=== PATIENT | male | born 1960 | race Caucasian/White ===

== ENCOUNTER 2022-11-23 13:53 | Outpatient (REF) | payer OTHER, SELFPAY | END 2022-11-23 13:54 | disposition home or self-care (01) | LOC: HO.BBR 13:53 | PROVIDERS: PCP Internal Medicine; Visit Provider Hospitalist | DX: E83.111 Hemochromatosis due to repeated red blood cell transfusions (principal) | CPT/HCPCS: 85018; 99195 ==

== ENCOUNTER 2022-12-26 13:53 | Outpatient (REF) | payer OTHER, SELFPAY | END 2022-12-26 13:54 | disposition home or self-care (01) | LOC: HO.BBR 13:53 | PROVIDERS: Visit Provider Hospitalist | DX: E83.111 Hemochromatosis due to repeated red blood cell transfusions (principal) | CPT/HCPCS: 85018; 99195 ==

== ENCOUNTER 2023-01-27 11:58 | Outpatient (REF) | payer OTHER, SELFPAY | END 2023-01-27 11:59 | disposition home or self-care (01) | LOC: HO.BBR 11:58 | PROVIDERS: Visit Provider Hospitalist | DX: E83.111 Hemochromatosis due to repeated red blood cell transfusions (principal) | CPT/HCPCS: 85018; 99195 ==

== ENCOUNTER 2023-02-24 08:48 | Outpatient (REF) | payer OTHER, SELFPAY | END 2023-02-24 08:49 | disposition home or self-care (01) | LOC: HO.BBR 08:48 | PROVIDERS: PCP Internal Medicine; Visit Provider Hospitalist | DX: E83.111 Hemochromatosis due to repeated red blood cell transfusions (principal) | CPT/HCPCS: 85018; 99195 ==

== ENCOUNTER 2023-03-24 10:02 | Outpatient (REF) | payer OTHER, SELFPAY | END 2023-03-24 10:03 | disposition home or self-care (01) | LOC: HO.BBR 10:02 | PROVIDERS: PCP Internal Medicine; Visit Provider Hospitalist | DX: E83.111 Hemochromatosis due to repeated red blood cell transfusions (principal) | CPT/HCPCS: 85018; 99195 ==

== ENCOUNTER 2023-04-19 09:55 | Outpatient (REF) | payer OTHER, SELFPAY | END 2023-04-19 09:56 | disposition home or self-care (01) | LOC: HO.BBR 09:55 | PROVIDERS: PCP Internal Medicine; Visit Provider Hospitalist | DX: E83.111 Hemochromatosis due to repeated red blood cell transfusions (principal) | CPT/HCPCS: 85014; 85018; 99195 ==

== ENCOUNTER 2023-05-17 09:48 | Outpatient (REF) | payer OTHER, SELFPAY | END 2023-05-17 09:49 | disposition home or self-care (01) | LOC: HO.BBR 09:48 | PROVIDERS: PCP Internal Medicine; Visit Provider Hospitalist | DX: E83.111 Hemochromatosis due to repeated red blood cell transfusions (principal) | CPT/HCPCS: 85018; 99195 ==

== ENCOUNTER 2023-05-21 19:57 | Emergency (ER) | payer OTHER, SELFPAY ==
--- NOTE | ~2023-05-21 | CT_ITS ---
EXAMINATION: CT ANGIOGRAM OF THE CHEST WITH AND WITHOUT CONTRAST (CT PULMONARY ANGIOGRAM FOR PE) CLINICAL INFORMATION: Reason for Exam sob , cp hx of pe , lung ca COMPARISON: CT abdomen pelvis 11/09/2016 TECHNIQUE: Prior to contrast administration, noncontrast localization images were obtained. Subsequently, multidetector volumetric imaging was performed from the thoracic inlet to below the diaphragms following the administration of 65 mL Omnipaque 350 intravenous contrast. No contrast reaction reported Sagittal, coronal, and MIP oblique sagittal reformatted images were obtained on the CT workstation, uploaded to PACS, and reviewed. This CT examination was performed using dose optimization techniques as appropriate, variously including the following: *Automated exposure control *Adjustment of mA and/or kV according to patient size (this includes techniques or standardized protocols for targeted exams where dose is matched to indication/reason for exam; i.e. extremities or head) *Use of iterative reconstruction technique Total exam dose-length product 446 mGy-cm FINDINGS: QUALITY OF STUDY/CONTRAST BOLUS: Satisfactory. PULMONARY ARTERIES: No central or large segmental pulmonary emboli. THORACIC AORTA: No aneurysm. LUNG: Severe emphysematous changes are present in the lungs. There is a single large bolus taking up a large portion of the right thoracic cavity measuring 23.3 x 10.9 x 8.6 cm. A few scattered micronodules are seen (for example left upper lobe 3 mm, 7:161). No air-fluid levels are seen on the sagittal images to correspond with the abnormality seen on the chest radiograph. PLEURA: No pleural effusion or pneumothorax. MEDIASTINUM: Normal heart size. No pericardial effusion. No hilar or mediastinal lymphadenopathy. No evidence of septal bowing or right heart strain. CORONARY ARTERY CALCIFICATION: None visualized on this study. CHEST WALL/AXILLA: No axillary or internal mammary lymphadenopathy. OSSEOUS STRUCTURES: No acute or suspicious osseous abnormality. Degenerative changes are present throughout the spine. UPPER ABDOMEN: Unremarkable. No reflux of contrast into the hepatic veins to suggest elevated right heart pressures. CT/CT angio chest PE protocol IMPRESSION: 1. No evidence of pulmonary emboli. 2. Severe emphysema. 3. Single large bolus taking up much of the right thoracic cavity. 4. A few scattered micronodules. VTE: negative.
--- NOTE | ~2023-05-21 | XR_ITS ---
EXAMINATION: XR CHEST CLINICAL INFORMATION: Chest pain, history of lung carcinoma COMPARISON: None available. TECHNIQUE: 2 views of the chest were obtained. FINDINGS: No previous. Advanced emphysema particularly on the right with large bullous formation. Suspect air-fluid level best seen on the lateral projection.. No definite mass or infiltrate. Heart size normal. Scoliosis convex left thoracolumbar spine. XR/XR chest 2V IMPRESSION: Severe emphysema. Air-fluid level noted on the lateral projection which may suggest superinfection of a large bulla.
--- NOTE | 2023-05-21 20:01 | ECG_ITS ---
Test Reason : CP Blood Pressure : / mmHG Vent. Rate : 099 BPM Atrial Rate : 099 BPM P-R Int : 150 ms QRS Dur : 066 ms QT Int : 340 ms P-R-T Axes : 080 -35 078 degrees QTc Int : 436 ms Sinus rhythm with marked sinus arrhythmia Left axis deviation Pulmonary disease pattern Inferior infarct , age undetermined Abnormal ECG No previous ECGs available Referred By: Generic ED Physician Electronically Signed By:GEORGE DAIGLE MD
[2023-05-21 20:08] VITALS: BP 156/78; PULSE 107; RESP 20; TEMP 36.8; O2SAT 96; BMI 27.3
--- NOTE | 2023-05-21 20:58 | MHC.EDTECH ---
Patient was brought into triage,EKG taken and sighed by provider. Labs were obtained and sent to lab
[2023-05-21 21:04] LABS: MANUAL DIFF FLAG NO
[2023-05-21 21:06] LABS: Basophils Percent Auto 0.4 % (0-2); Eosinophils Absolute Auto 0.1 X10*3/uL (0.0-0.4); Eosinophils Percent Auto 0.5 % (0-4); Hematocrit 45.2 % (42.0-52.0); Hemoglobin 15.4 g/dl (14.0-18.0); Imm Gran Abs Auto 0.11 X10*3/uL (0.00-0.03); Imm Gran Pct Auto 1.2 % (0.0-0.4); Lymphocytes Absolute Auto 1.2 X10*3/uL (1.2-4.9); Lymphocytes Percent Auto 13.2 % (20-40); Mean Corpuscular HGB Conc 34.1 g/dl (31.0-36.0); Mean Corpuscular Hemoglobin 30.7 pg (27.0-33.0); Mean Corpuscular Volume 90.2 fL (80.0-98.0); Mean Platelet Volume 10.1 fL (9.4-12.4); Neutrophils Absolute Auto 6.8 x10*3/uL (2.0-8.3); Neutrophils Percent Auto 73.7 % (45-73); Platelet Count 226 X10*3/uL (160-400); Red Blood Count 5.01 X10*6/uL (4.60-5.80); Red Cell Distribution Width 13.5 % (11.0-16.0); White Blood Count 9.3 X10*3/uL (4.8-10.8)
[2023-05-21 21:22] LABS: Alanine Aminotransferase 23 U/L (0-40); Albumin Level 4.3 g/dL (3.5-5.0); Alkaline Phosphatase 146 U/L (39-117); Anion Gap 16 (12-20); Aspartate Amino Transferase 25 U/L (5-37); Bilirubin Total 0.9 mg/dL (0.0-1.0); Blood Urea Nitrogen 14 mg/dL (9-16); Calcium 10.5 mg/dL (8.4-10.2); Carbon Dioxide 26 mmol/L (22-29); Chloride 104 mmol/L (96-108); Creatinine Clr Calc Pharmacy 85.3; Estimated Glomerular Filt Rate > 60; Glucose Random 126 mg/dL (60-115); Sodium 142 mmol/L (135-145); Total Protein 7.4 g/dL (6.5-8.0)
[2023-05-21 21:29] LABS: Troponin-I High Sensitivity < 2.7 ng/L (<3.5-35.0)
--- NOTE | 2023-05-21 22:41 | ED.CHESTPAIN ---
HPI - Chest Pain General Chief Complaint: Chest Pain Stated Complaint: chest pain Time Seen by Provider: 05/21/23 22:41 Source: patient Mode of arrival: ambulatory Limitations: no limitations History of Present Illness HPI narrative: Patient is 62 years old with history of COPD ex-smoker, lung CA status post lobectomy chemo and radiation treatment 2019 in remission history of PE 08/18 DVT on Eliquis no known cardiac history apparently been feeling more short of breath lately last night at 02:00 while sitting in the constitution party felt heaviness in the mid chest radiating to his neck with nausea and increased shortness of breath also felt tingling in the right arm it continued all day today and did not go without the patient keep the ER no abdominal pain patient never had similar pain in the past patient had labs done prior to my evaluation high sensitive troponin less than 2.7. Patient denies any palpitation no syncope pain was pressure-like feeling in mid chest area Related Data Previous Rx's Medication Instructions Recorded morphine 15 mg immediate release 15 mg PO Q8H PRN pain #15 tabs 05/22/23 tablet Allergies Allergy/AdvReac Type Severity Reaction Status Date / Time No Known Allergies Allergy Unverified 02/13/20 16:57 [No Known Allergies*] adhesives Allergy Unknown severe Uncoded 11/24/16 00:00 rash, skin irritation percocet Allergy Unknown vomiting Uncoded 11/24/16 00:00 Review of Systems Review of Systems: Yes all other systems are reviewed and are negative [facility] Social History Social History Alcohol intake: current Alcohol intake frequency: holidays/special occasions only Alcohol type: hard liquor Smoked in Last 30 Days: No Substance Use Type: Marijuana Substance Use Frequency: Occasionally Last Used Substance: Days (ago) Any prior treatment program specific to substance use: No Advance Directives: No Advance Directives Information Provided: Yes Physical Exam Vital Signs: Vital Signs: Last Vital Signs Temp 98.6 F 05/21/23 23:29 Pulse 100 05/21/23 23:29 Resp 18 05/21/23 23:29 BP 115/82 05/21/23 23:29 Pulse Ox 96 05/21/23 23:29 O2 Del Method Nasal Cannula 05/21/23 23:29 O2 Flow Rate 1 05/21/23 23:29 BMI result Body Mass Index 27.3 Appearance: Alert. Oriented X3. No acute distress. Eyes: PERRLA ENT: Pharynx normal. Oral Mucosa moist Neck: Normal inspection. Neck supple. CVS: Normal heart rate and rhythm. Pulses normal. Respiratory: No respiratory distress. Equal air entry bilateral, prolonged expiration no wheezing Abdomen: Soft and nontender. Bowel sounds are present, no mass palpable, no CVA tenderness Skin: Skin warm and dry. Normal skin color. Normal skin turgor. Extremities: No lower extremity edema. No calf tenderness Neuro: Oriented X 3. No motor deficit. No sensory deficit.No cerebellar signs , cranial nerves II-XII intact Medications Administered Discontinued Medications Generic Name Dose Route Start Last Admin Trade Name Freq PRN Reason Stop Dose Admin Iohexol 65 ml 05/22/23 00:17 05/22/23 00:18 Iohexol 350 Mg/Ml 100 Ml Infus..Btl IV 05/22/23 00:18 65 ml ONCE ONE Administration Morphine Sulfate 15 mg 05/22/23 01:23 05/22/23 01:38 Morphine Sulfate Immed Release 15 Mg Tablet PO 05/22/23 01:24 15 mg ONCE ONE Administration Medical Decision Making Medical Decision Making [facility] Narrative: Patient with mid and right-sided chest pain with history of severe emphysema no ischemic change in the EKG CTA chest showed no PE but has large Bullae likely the cause for shortness of breath and pain will discharge patient home on pain medication advised to follow with lung specialist Differential Diagnosis Differential Diagnoses: The differential diagnosis associated with the presentation includes ACS/PE/pneumothorax/pneumonia/pleurisy Admission/Observation Consideration of admission/observation: Escalation of care including admission/observation considered Lab Data [facility] Lab Attestation statement: I reviewed the patient's lab results. 05/21/23 20:57 05/21/23 20:57 Labs: Lab Results 05/21/23 05/21/23 05/22/23 Range/Units 20:57 23:14 00:19 WBC 9.3 (4.8-10.8) X10*3/uL RBC 5.01 (4.60-5.80) X10*6/uL Hgb 15.4 (14.0-18.0) g/dl Hct 45.2 (42.0-52.0) % MCV 90.2 (80.0-98.0) fL MCH 30.7 (27.0-33.0) pg MCHC 34.1 (31.0-36.0) g/dl RDW 13.5 (11.0-16.0) % Plt Count 226 (160-400) X10*3/uL MPV 10.1 (9.4-12.4) fL Immature Gran % (Auto) 1.2 H (0.0-0.4) % Neut % (Auto) 73.7 H (45-73) % Lymph % (Auto) 13.2 L (20-40) % [place] % (Auto) 11.0 (2-11) % Eos % (Auto) 0.5 (0-4) % Baso % (Auto) 0.4 (0-2) % Lymph # (Auto) 1.2 (1.2-4.9) X10*3/uL [place] # (Auto) 1.0 (0.1-1.2) X10*3/uL Eos # (Auto) 0.1 (0.0-0.4) X10*3/uL Baso # (Auto) 0.0 (0.0-0.2) X10*3/uL Abs Immat Gran (auto) 0.11 H (0.00-0.03) X10*3/uL Absolute Neuts (auto) 6.8 (2.0-8.3) x10*3/uL Absolute Nucleated RBC 0.000 (0.0-0.012) X10*3/uL Nucleated RBC % (auto) 0.0 (0.0-0.2) /100WBC PT 12.7 (11.1-13.3) SEC INR 1.0 (0.9-1.1) APTT 31.5 (26.0-36.4) SEC Sodium 142 (135-145) mmol/L Potassium 4.0 (3.3-5.1) mmol/L Chloride 104 (96-108) mmol/L Carbon Dioxide 26 (22-29) mmol/L Anion Gap 16 (12-20) BUN 14 (9-16) mg/dL Creatinine 1.04 (0.5-1.4) mg/dL Estim Creat Clear Calc 85.3 Estimated GFR > 60 Random Glucose 126 H (60-115) mg/dL Calcium 10.5 H (8.4-10.2) mg/dL Total Bilirubin 0.9 (0.0-1.0) mg/dL AST 25 (5-37) U/L ALT 23 (0-40) U/L Alkaline Phosphatase 146 H (39-117) U/L Troponin I High Sens < 2.7 < 2.7 (<3.5-35.0) ng/L Total Protein 7.4 (6.5-8.0) g/dL Albumin 4.3 (3.5-5.0) g/dL Independent Interpretation I performed an independent interpretation of an: EKG, Plain X-Ray and CT Scan Interpretation: No sinus rhythm with PACs heart rate 99 beats per minute left axis deviation Q-wave in the inferior leads no acute ischemic changes Radiology Impression Discussion of test interpretation with radiology: I have reviewed the radiologist's reading. Discharge Plan Discharge Clinical Impression: Chest pain Patient Disposition: Home, Self-Care Instructions: Chest Pain (ED) Additional Instructions: The etiology of chest pain is not clear likely from large air bubble secondary to chronic lung disease Follow with PCP/pulmonology Pain medication as prescribed Prescriptions: New morphine 15 mg tablet 15 mg PO Q8H PRN (Reason: pain) Qty: 15 0RF Rx Instructions: Partial Fill upon patient request. Referrals: Manuel Valencia MD [Physician] - 2 weeks Interventions: ED Discharge Assessment Last Done: 05/22/23 01:50 Discharge Date/Time: 05/22/23 01:51
--- OUTSIDE RECORDS SUMMARY | 2023-05-21 22:45 | XMS_ITS | Continuity of Care Document ---
Author Name Unknown Organization [facility] ter Address [address] [place] [id number]- Care Team Providers Care Fire Investigation Manager Name Role Phone Renée FERNANDEZ, Elba Ohara Primary Care Physician Encounter [facility] [place](s): 09/28/22 - 09/28/[address] [address] Discharge Disposition: A-D/C Home Attending Physician: Luis Gann MD Admitting Physician: Luis Gann MD Referring Physician: Luis Gann MD Allergies, Adverse Reactions, Alerts Substance Reaction Severity Status codeine 1 severe vomiting Intermittent Active Adhesive Bandage 2 Active Percocet 7.5/325 vomiting Active OxyCONTIN vomiting Active 1Nausea/ vomiting 2blisters Immunizations Given and Recorded Vaccine Date Status Refusal Reason influenza virus vaccine, inactivated 04/05/16 Otto rded pneumococcal 23-valent vaccine 03/19/15 Given Medications Aerochamber See Instructions, # 1 each, Refills 1, Tot. Refills 1, Maintenance, 1 units, 07/21/22 16:57:00 EST,Supply, 186, cm, 06/21/22 11:11:00 EST, Height, 85.3, kg, 04/13/21 2:49:00 EST, Dry Weight Start Date: 07/21/22 Status: Ordered albuterol 0.083% inhalation solution 3 mL = 2.5 mg, Neb, Every 6 hours, PRN as needed for wheezing, DX: COPD, J44.9, # 360 mL, 11 Refills, Maintenance, 06/21/22 11:52:00 EST, Solution, [facility] #[id number], Partial fill upon patient request if the prescription is for a schedule II... Start Date: 06/21/22 Stop Date: 06/16/23 Status: Ordered Ambien 10 mg oral tablet See Instructions, 2- 1 tablet By Mouth Daily at bedtime, # 30 tablet, 1 Refills, Maintenance, 08/10/22 12:22:00 EDT, [facility] #[id number], Partial fill upon patient request if the prescription is for a schedule II opioid drug., 186, cm, 07/27... Start Date: 08/10/22 Status: Ordered apixaban 5 mg oral tablet 1 tablet = 5 mg, By Mouth, 2 times a day, # 60 tablet, 5 Refills, Maintenance, 08/10/22 12:52:00 EDT, Tablet, [facility] #[id number], Partial fill upon patient request if the prescription is fora schedule II opioid drug., 186, cm, 08/10/22 11:46... Start Date: 08/10/22 Status: Ordered Nebulizer/Compressor See Instructions, # 1 each, Refills 11, Tot. Refills 11, Maintenance, E0570 Nebulizer A7003 Neb Disp Set A7014 Neb non-Disp Filter A7005 Neb Non-Disp set A7015 Aerosol Mask A7013 Neb Disp Filter length of need lifetime 99 months for home use Dx... Start Date: 07/01/22 Status: Ordered omeprazole 20 mg oral enteric coated capsule 1 capsule = 20 mg, By Mouth, Daily, take on empty stomach 30min before breakfast, # 30 capsule, 2 Refills, Maintenance, 09/01/22 7:55:00 EDT, EC Capsule, [facility] #[id number], Partial fill upon patient request if the prescription is for a sched... Start Date: 09/01/22 Stop Date: 11/30/22 Status: Ordered Spiriva Respimat 10 ACT 2.5 mcg/inh inhalation aerosol 2 puffs, Inhalation, Daily, # 4 Gm, 11 Refills, Maintenance, 07/21/22 16:56:00 EST, [facility] #[id number], Partial fill upon patient request if the prescription is for a schedule II opioid drug., 186, cm, 06/21/22 11:11:00 EST, Height, 85.3, kg,... Start Date: 07/21/22 Stop Date: 07/16/23 Status: Ordered Ventolin HFA 108 mcg/inh inhalation aerosol with adapter 2 puffs, Inhalation, Every 6 hours, PRN Wheezing/Shortness of Breath, # 18 Gm, 11 Refills, Maintenance, 06/21/22 11:57:00 EST, [facility] #[id number], Partial fill upon patient request if the prescription is for a schedule II opioid drug., 186, cm... Start Date: 06/21/22 Stop Date: 06/16/23 Status: Ordered zolpidem 10 mg oral tablet 1 tablet = 10 mg, By Mouth, Daily at bedtime, PRN as needed for insomnia, 0 Refills, Maintenance, 07/29/22 22:05:00 EST, Tablet, Partial fill upon patient request if the prescription is for a schedule II opioid drug. Start Date: 07/29/22 Status: Ordered Problem List Condition Confirmation Course Effective Dates Status H ealth Status Informant Blurry vision, bilateral Confirmed Active Hemochromatosis carrier Confirmed Active Chest pain Confirmed Active Vaccine counseling Confirmed Active Diverticular disease Confirmed Active Dyspnea Confirmed Active Family hx of colon cancer Confirmed Active GERD (gastroesophageal reflux disease) Confirmed Active History of esophagitis Confirmed Active History of lung cancer Confirmed Active Insomnia Confirmed Active Healthcare maintenance Confirmed Active Prostate cancer screening Confirmed Active Elevated ferritin level Confirmed Active Pulmonary embolus, right Confirmed Active COPD type A Confirmed Active Pulmonary emphysema Confirmed Active Major depression, recurrent Confirmed Active Renal mass, right Confirmed Active Hepatic steatosis Confirmed Active Subclinical hypothyroidism Confirmed Active Tubular adenoma of colon Confirmed Active Screening for viral disease Confirmed Active Vital Signs Most recent to oldest [Reference Range]: 1 2 3 Height 185 cm (09/28/22 12:40 PM) Weight 96 kg (09/28/22 12:40 PM) Oxygen Saturation [94-100 %] 98 % (09/28/22 1:45 PM) 98 % (09/28/22 1:40 PM) 100 % (09/28/22 1:33 PM) Pulse Rate [55-90 bpm] 82 bpm (09/28/22 12:40 PM) Body Mass Index [18.5-24.99 kg/m2] 28.05 kg/m2 *H* (09/28/22 12:40 PM) Blood Pressure [90-138/55-84 mm Hg] 112/91mm Hg (09/28/22 1:45 PM) 109/79mm Hg (09/28/22 1:40 PM) 98/84mm Hg (09/28/22 1:33 PM) Respiratory Rate [16-30 br/min] 20 br/min (09/28/22 1:45 PM) 22 br/min (09/28/22 1:40 PM) 22 br/min (09/28/22 1:33 PM) Temperature [96.8-100.4 DegF] 98.2 DegF (09/28/22 12:40 PM) Liters per Minute 4 L/min (09/28/22 1:33 PM) Mode of Delivery (Oxygen) Room air (09/28/22 1:45 PM) Room air (09/28/22 1:40 PM) Simple face mask (09/28/22 1:33 PM) Temperature Route Temporal (09/28/22 12:40 PM) Social History Social History Type Response Smoking Status Former smoker; Other : quit 2 weeks ago with [employer]; entered on: 04/10/15 Sex Note * Danay Kendall RN: PERFORM Event Display: Discharge/Transfer Note Hospital Authored Date: [id number] Nursing Discharge Note Entered On: 09/28/2022 13:29 EDT Performed On: 09/28/2022 13:29 EDT by Danay Kendall RN Nursing Discharge Note 2 Discharge Time : 09/28/2022 14:02 EDT Danay Kendall RN - 09/28/2022 14:02 EDT Discharge Level of Care at Discharge : Home/Snf/Foster Care Patient Left Unit Via : Wheelchair Patient Accompanied Off Unit with : Responsible adult DC Instructions Provided & Signed by Pt : Yes Patient Understands D/C Instructions : Yes Patient Instructions Discharge Signed : Yes Did Pt have Specialty Bed or Wound Vac : No Danay Kendall RN - 09/28/2022 13:29 EDT * Danay Kendall RN: PERFORM Event Display: Patient Education/Instruction Authored Date: [id number] Inpatient Adult Discharge Instructions [address] [address] Name: WILFRID ANTONIO : 1960 Visit: 09/28/2022 12:11:00 Current Date: 09/28/2022 13:29 Account: [id number] Inpatient Adult Discharge Instructions We would like to thank you for allowing us to assist you with your healthcare needs. The following includes patient education materials and information regarding your injury/illness. Our entire staffstrives to provide an excellent experience for our patients and their families. PLEASE ENSURE YOU FOLLOW-UP PER THE INSTRUCTIONS BELOW! ?? YOUR OPINION IS IMPORTANT TO US! Please complete the survey you may receive by mail or email. Your feedback will be used to make improvements to the healthcare experiences of our patients and their families. Surveys are administered by [employer]. ?? If further treatment with your primary care physician or another doctor is recommended, it is important for you to keep the appointment. Call your primary care physician or return to the Emergency Department immediately if your condition worsens, fails to improve, or new symptoms develop. If you need to find a doctor, you can call [employer] for a referral at [phone] or toll free at [phone] Green EnergyWYMQSN ([phone]) or log in to [email or web address].. ?? You can view and manage your care through the patient portal or by using a health care livia of your choosing. [employer] is a website that allows you to securely view your medical information including your hospital discharge summary, office visit summaries, medications and follow-up visits. You can also request appointments, renew medications, and request access to your medical information using a health care livia of your choosing, or just ask a question. You can enroll at [email or web address] or register during your next office visit. You have been discharged from [facility], Patient Care Unit: ENDO. If you have any questions regarding these instructions after you leave, please call us and we will be happy to assist you. [facility] Your Care Team Attending Physician Luis Gann MD Discharging Providers Azeem FERNANDEZ, Luis George Reason for Your Visit PHX POLYPS GERD Tests Performed Below is a partial list of the tests performed during your hospitalization. You may have had other tests and procedures not included in this list. Please discuss all test results with your provider. Primary Care Provider Elba Chinchilla MD Advance Directive . Discharge Vitals Temperature: 98.2 DegF Height: 185 cm Pulse Rate: 82 bpm Weight: 96 kg Respiratory Rate:??14 br/min??Low Body Mass Index:??28.05 kg/m2??High Systolic Blood Pressure: 136 mm Hg Body surface area: 2.22 Diastolic Blood Pressure:??97 mm Hg??High ?? Oxygen Saturation: 97 % ?? Studies Pending All tests and labs ordered during this hospital stay have been completed unless listed below. Please discuss all pending results with your provider listed above in these instructions. ?? No incomplete studies found What to do next Instructions From Your Doctor Discharge Orders Scheduled Follow-Up Appointments Monday 1:00 PM EDT ?? With: Where: [facility] [address] [place], [place] - 2022 11:30 AM EDT ?? With: Elba Chinchilla MD Where: [facility] [address] [address]- Monday 11:00 AM EDT ?? With: Elba Chinchilla MD Where: [facility] [address] - You Need to Schedule the Following Appointments Follow Up with??follow up with primary doctor as needed When?? Follow Up with??Elba Chinchilla When??In 0 days Discharge Medications WILFRID ANTONIO :1960 Visit Date:09/28/2022 Medications: Please continue your medications until treatment is completed or stopped by your provider. Medications not listed below should be discontinued. Discuss any questions related to medications with your provider. What How Much When Instructions Next Dose Unchanged Albuterol (albuterol 0.083% inhalation solution) 3 Milliliter Nebulized inhalation Every 6 hours as needed for as needed for wheezing Duration: 30 Days DX: COPD, J44.9 ?? Unchanged Albuterol (Ventolin HFA 108 mcg/ inh inhalation aerosol with adapter) 2 puff(s) Inhalation Every 6 hours as needed for Wheezing/Shortness of Breath Duration: 30 Days Unchanged apixaban (apixaban 5 mg oral tablet) 1 tab(s) Oral Twice a day tonight per dr gann Unchanged Durable Medical Equipment (Aerochamber) See instructions 1 units ?? Unchanged Durable Medical Equipment (Nebulizer/ Compressor) See instructions E0570 Nebulizer A7003 Neb Disp Set ??A7014 Neb non-Disp Filter ??A7005 Neb Non- Disp set A7015 Aerosol Mask A7013 Neb Disp Filter ??length of need lifetime 99 months ??for home use Dx COPD J44.9 ?? Unchanged Omeprazole (omeprazole 20 mg oral enteric coated capsule) 1 capsule Oral Daily Duration: 30 Days take on empty stomach 30min before breakfast ?? Unchanged Tiotropium (Spiriva Respimat 10 ACT 2.5 mcg/ inh inhalation aerosol) 2 puff(s) Inhalation Daily Duration: 30 Days Unchanged Zolpidem (Ambien 10 mg oral tablet) See instructions 1/ 2- 1 ??tablet By Mouth Daily at bedtime ?? Unchanged Zolpidem (zolpidem 10 mg oral tablet) 1 tab(s) Oral Daily at Bedtime as needed for as needed for insomnia Test Results Below is a partial list of the most recent Laboratory test results done prior to this discharge. You may have had other tests and procedures not included in this list. Please discuss all test resultswith your provider. Allergies (NKA means No Known Allergies) codeine??(severe vomiting) Adhesive Bandage OxyCONTIN??(vomiting) Percocet 7.5/325??(vomiting) Problems Active Problems??(23) Blurry vision, bilateral?? Chest pain?? COPD type A?? Diverticular disease?? Dyspnea?? Elevated ferritin level?? Family hx of colon cancer?? GERD (gastroesophageal reflux disease)?? Healthcare maintenance?? Hemochromatosis carrier?? Hepatic steatosis?? History of esophagitis?? History of lung cancer?? Insomnia?? Major depression, recurrent?? Prostate cancer screening?? Pulmonary embolus, right?? Pulmonary emphysema?? Renal mass, right?? Screening for viral disease?? Subclinical hypothyroidism?? Tubular adenoma of colon?? Vaccine counseling?? Education Materials Below is the list of Educational Leaflet Providered with your Discharge Instructions. Surgery Medical Daystay Surgical Overnight Discharge Instructions?? Hemorrhoids Discharge Instructions?? Diverticulosis Discharge Instructions?? Colon Polypectomy Discharge Instructions?? Valuables and Belongings I fully understand and agree that [facility] accepts no responsibility for all my personal property including clothing, toilet articles, radios, jewelry, dentures, hearing aids, rings, money, or any other property that is in my possession or is brought to me after admission. I understand certain valuables may be placed in a hospital safe for a short period of time. I understand that the hospital is not liable for loss or damage due to accident, fire, or other natural occurrence while said property is in the safe. I accept full responsibility for any personal property that I keep with me, and will not hold the hospital responsible in case of loss or disappearance. I acknowledge that i have been encouraged to send valuables and belongings home. ? Other Discharge Information ? Case Management Discharge Plan?? Discharge Plan?? Discharge Level of Care at Discharge: Home/Snf/Foster Care ?? Pulmonary Rehab Status?? Pulmonary Rehab Discharge Status?? Respiratory Rate:??14 br/min??Low ? Common Emergency Awareness Tips IS IT A STROKE? Act FAST and Check for these signs: FACE Does the face look uneven? ARM Does one arm drift down? SPEECH Does their speech sound strange? TIME Call at any sign of stroke ?? Heart Attack Signs Chest discomfort: Most heart attacks involve discomfort in the center of the chest and lasts more than a few minutes, or goes away and comes back. It can feel like uncomfortable pressure, squeezing, fullness or pain. Discomfort in upper body: Symptoms can include pain or discomfort in one or both arms, back, neck, jaw or stomach. Shortness of breath: With or without discomfort. Other signs: Breaking out in a cold sweat, nausea, or lightheaded. Remember, MINUTES DO MATTER. If you experience any of these heart attack warning signs, call to get immediate medical attention! ?? Smoking can increase your chances of developing chronic health problems and can cause harmful effects to other family members in your house. If you smoke, you are strongly encouraged to quit. Please call [employer] at [phone] or [phone] ([phone]) or log in to [email or web address] for referrals to smoking cessation programs. ?? 762 Suicide & Crisis Lifeline is available 19/12 if you or someone you know needs to find a reason to keep living. By calling 250 you'll be connected to a skilled, trained counselor at a crisis center in your area. INPATIENT DISCHARGE INSTRUCTIONS SIGNATURE PAGE WILFRID ANTONIO Location:[facility] Registration Date and Time:09/28/2022 12:11 EDT Primary Care Physician: Renée FERNANDEZ, Elba Ohara, I WILFRID ANTONIO, have received the above patient education materials/instructions and have verbalized understanding. If ambulance or transport services are being used I further acknowledge being given a choice of service. ?? If you need to contact me, please call me at this number: . Patient/Scullion Chief Name: Patient/Scullion Chief Signature: Relationship to Patient: Witness Name/Signature: Date: * Danay Kendall RN: PERFORM, SIGN, VERIFY Event Display: Patient Education Handout Authored Date: [id number] * Danay Kendall RN: PERFORM Event Display: Patient Education Leaflets Authored Date: [id number] Surgery Medical Daystay Surgical Overnight Discharge Instructions ?? 295 Medical Daystay/Surgical Overnight Discharge Instructions ? Since your coordination and judgment may be altered by medication and/or anesthesia, a responsible adult must drive you home from the hospital. ? If you have received medication for pain or sedation while under our care, you should not drive, operate machinery, drink alcohol, or sign any legal documents for 24 hours.?? You should have someone with you at home tonight. ? Remain at home the day of discharge.?? You may be up and about unless otherwise instructed by your physician. ? You may resume your daily prescription medication schedule.?? Any depressant medication should be avoided for 24 hours unless otherwise instructed by your surgeon or anesthesiologist. ? Call your physician for a follow-up appointment.? If you experience unusual or severe pain not relied by your pain medication, excessive bleedingor drainage, persistent nausea and vomiting, excessive swelling or redness, foul odor from incisionsite or fever over 100.6F, you need to call your physician. ? A follow-up phone call by a nurse will be made the day after your procedure.?? If you have stayed with us over night, you will not be receiving a follow-up phone call. ? Nausea and vomiting are a common side effect of prescription pain medication.?? We recommend that pills are not taken on an empty stomach.?? While taking any prescription pain medication you should not drive or drink alcohol. ? * Danay Kendall RN: PERFORM Event Display: Patient Education Leaflets Authored Date: [id number] Hemorrhoids Discharge Instructions ?? 672 ??Hemorrhoids Discharge Instructions ??You must carefully read the Consumer Information Use and Disclaimer below in order to understand and correctly use this information?? About this topic Hemorrhoids are swollen veins in the rectum. Your rectum is where stool leaves your body. You may be able to see or feel your hemorrhoids outside of your body, but some hemorrhoids are inside of yourrectum and cannot be seen. Hemorrhoids can cause itching, pain, and bleeding. Being constipated or having hard stools can make your hemorrhoids worse.?? What care is needed at home? Ask your doctor what you need to do when you go home. Make sure??you ask questions if you do not understand what the doctor says. This??way you will know what you need to do. ??? Soak your bottomin a few inches of warm water for 10 to 15 minutes??at a time. You can do this 2 to 3 times each day. Do not add soap,??bubble bath, or anything to the water. ??? Use evhp-nnb-ewvdata medicines to treat your hemorrhoids. These??include ointments and creams to help with pain and swelling. You can??also use a product like witch girma to help dry out the skin in the area. ??? To help with constipation: ??? Use stool softeners when needed. ??? Eat high-fiber foods. These include whole grains, fruits, and??vegetables. ??? Drink plenty of water and other fluids each day. This helps to??keep your stools soft. ??? Set a regular schedule to try and have a bowel movement. Do??not ignore the urge to go to the bathroom. Don???t hold it in. ??? Give yourself plenty of time to have a bowel movement, but do not linger on the toilet either, by sitting and reading for a long time. ??? Do mild exercise each day like taking a walk. ??? Avoid heavy lifting or straining while the hemorrhoid is healing. ?? What follow-up care is needed? If your problem does not get better, other care may be needed. Your doctor may ask you to make visits to the office to check on your progress. Be sure to keep these visits.?? What drugs may be needed? The doctor may order drugs to: ??? Help with pain and swelling ??? Ease itching ??? Soften stools ?? Will physical activity be limited? Working out can help with digestion. It might help keep you from having hard stools. Ask your doctor about the best kind of exercise for you. ?? What problems could happen? You may have very bad bleeding. ??? Sometimes, treatments do not work. Some hemorrhoids are very??large. You might need surgery for either of these. ?? When do I need to call the doctor? You have a lot of bleeding from your rectum. ??? Your bowel movement looks like tar. ??? You are not able to pass stool because of pain from your??hemorrhoids. ??? Your pain gets worse and is nothelped by rygq-zec-cabfugy??medicines, warm water, or your home care. ??? You have a fever of 100.4??F (38??C) or higher. ?? Teach Back: Helping You Understand The Teach Back Method helps you understand the information we are giving you. After you talk with the staff, tell them in your own words what you learned. This helps to make sure the staff has described each thing clearly. It also helps to explain things that may have been confusing. Before going home, make sure you can do these: ??? I can tell you about my condition. ??? I can tell you what may help ease my pain. ??? I can tell you what I will do if I have blood in my rectum. Where can I learn more?[employer]https://familydoctor.or g/condition/hemorrhoids/National Digestive Disease Information Clearinghousehttps://www.niddk.nih.go v/health-information/digestive-diseases/hemorrhoids/definition-factsLast Reviewed Uefp6554-93-33Vufsqtum Information Use and Disclaimer:This generalized information is a limited summary of diagnosis,treatment, and/or medication information. It is not meant to be comprehensive and should be used asa tool to help the user understand and/or assess potential diagnostic and treatment options. It does NOT include all information about conditions, treatments, medications, side effects, or risks thatmay apply to a specific patient. It is not intended to be medical advice or a substitute for the medical advice, diagnosis, or treatment of a health care provider based on the health care provider's examination and assessment of a patient???s specific and unique circumstances. Patients must speak with a health care provider for complete information about their health, medical questions, and treatment options, including any risks or benefits regarding use of medications. This information does not endorse any treatments or medications as safe, effective, or approved for treating a specific patient. [employer] and its affiliates disclaim any warranty or liability relating to this information or the use thereof. The use of this information is governed by the Terms of Use, available at??htt ps://www.[employer]Raven.Leikr/en/know/rmnazyeb-xufhoydehjoft-bgcnaMunq Updated 07/21/21? * Danay Kendall RN: PERFORM Event Display: Patient Education Leaflets Authored Date: [id number] Diverticulosis Discharge Instructions ?? 680 Diverticulosis Discharge Instructions ??You must carefully read the Consumer Information Use and Disclaimer below in order to understand and correctly use this information?About this topicDiverticulosis is a problem of the large bowel or colon. The wall of the bowel becomes weak and pushes outward. They form balloon-like pouches called diverticula or tics. When you have hard stool, you strain to have a bowel movement. This raises the pressure in the bowel and causes pouches or bulges to form. Most often, they do not cause a problem. If they become infected, you have diverticulitis. If you have both bleeding and infection, it is diverticular disease.??What care is needed at home? Ask your doctor what you need to do when you go home. Make sure??you ask questions if you do not understand what the doctor says. ??? Eat more whole grains, vegetables, and fruits. ??? Do not wait to have a bowel movement. Go as soon as you have the??urge. ??? Drink 8 to 10 glasses of water each day. Talk to your doctor if you are??drinking less fluids due to a health problem. ??? Be active. Walk,garden, or do something active for 30 minutes or more on most days of the week. ??What follow-up care is needed?Your doctor may ask you to make visits to the office to check on your progress. Be sure to keep these visits.??What drugs may be needed?Most often with diverticulosis you will not need to take any drugs.??Will physical activity be limited?When you are in pain, you may need to rest in bed. To ease the pain, use a heat compress on your belly. This should last only for a few days.??What changes to diet are needed?Talk to your doctor about any changes you need to make to your diet.? You do not need to avoid seeds, nuts, corn, or other similar foods. ??? You will need to eat food rich in fiber and drink more water. o Eat 5 or more servings of fresh fruits and vegetables every day. o Eat 6 or more servings of whole-wheat grain breads and??cereals. ??? Try toget 25 to 30 grams of fiber every day. Read the labels to??learn how much fiber is in foods. ??? Donot drink coffee, tea, or beer, wine, and mixed drinks (alcohol). ??What problems could happen?You may develop diverticulitis, which may cause:? Pockets or pouches in your bowel may be infected or filled with pus. ??? Hole or tear in your bowel ??? Part of your bowel to become narrow ??? You to need surgery ??What can be done to prevent this health problem?The best way to keep from having diverticulosis is to keep your bowel movements soft and normal. To keep more pouches from forming:? Talk with your doctor about adding an ajnd-bbq-zbwjmqg (OTC) fiber??product to keep your stools soft. ??? Limithow much pain drugs you take. Overuse of some pain drugs can??cause hard stools; talk with your doctor. ??? When do I need to call the doctor? Signs of infection. These include a fever of 100.4??F (38??C) or higher,??chills. ??? Mild pain or cramping in the lower part of the belly ??? A feelingof bloating in the belly ??? Belly pain that gets worse ??? Blood in your stool ??? Upset stomach or throwing up ??? Stools get too loose or too hard ??? Long-term hard stools ??Teach Back: Helping You UnderstandThe Teach Back Method helps you understand the information we are giving you. After you talk with the staff, tell them in your own words what you learned. This helps to make sure the staff has described each thing clearly. It also helps to explain things that mayhave been confusing. Before going home, make sure you are able to do these:? I can tell you abo ut my condition. ??? I can tell you what changes I need to make with my diet or drugs. ??? I can tell you what I will do if I have pain or cramping in my lower belly??or I have more belly pain. ??Where can I learn more???FamilyDoctor.orghttp://familydoctor.org/familydoctor/en/diseases-conditio ns/div erticular-disease.htmlNHShttps://www.nhs.uk/conditions/dcjbnnzibcxi-vttuiza-mzw- diverticulitis/LastReviewed Vnlj9959-08-24Hklbdaoe Information Use and Disclaimer:This generalized information is a limited summary of diagnosis, treatment, and/or medication information. It is not meant to be comprehensive and should be used as a tool to help the user understand and/or assess potential diagnostic and treatment options. It does NOT include all information about conditions, treatments, medications, side effects, or risks that may apply to a specific patient. It is not intended to be medical adviceor a substitute for the medical advice, diagnosis, or treatment of a health care provider based on the health care provider's examination and assessment of a patient???s specific and unique circumstances. Patients must speak with a health care provider for complete information about their health, medical questions, and treatment options, including any risks or benefits regarding use of medications. This information does not endorse any treatments or medications as safe, effective, or approved for treating a specific patient. [employer] and its affiliates disclaim any warranty or liabilityrelating to this information or the use thereof. The use of this information is governed by the Terms of Use, available at??https://www.PlayRaven.Leikr/en/know/tfqapyuu-cxciqdyfilejg-cebtdQyef Upd ed 07/21/21? Patient Care team information Care Team Personnel Name: Renée FERNANDEZ, Elba hOara Position: [facility] Primary Care Physician Member Role: PCP Address: Address: [address] [place] [address], [facility] [address] [place] [address]- Name: Chayito Roy RN Position: [facility] RN Member Role: Primary Care Nurse Name: Marry Zayas RN Position: [facility] [place] Nurse Member Role: Primary Care Nurse Care Team Related Persons Name: MERI CARLISLE Address: home [address] [place] [address] Name: KATI PEREZ Address: home [address] [place] [address] Name: DIONICIO ANTONIO Address: home [place], [place] Name: LUIGI ANTONIO Address: home [address] [place] [id number]
--- OUTSIDE RECORDS SUMMARY | 2023-05-21 22:45 | XMS_ITS | Continuity of Care Document ---
Author Name Unknown Organization [facility] Address [address] [facility], [address] d Floor, [address] [place] [address]- Care Team Providers Care Flask Cleaner Name Role Phone Renée FERNANDEZ, Elba Ohara Primary Care Physician [place] [facility] [place]/23 [facility] [address], [address] Floor, [address] [place] [id number] Attending Physician: Patt Brar Admitting Physician: Admtr, Patt Referring Physician: Admtr, Ar8 Allergies, Adverse Reactions, Alerts Substance Reaction Severity [...] 11 Refills, Maintenance, 06/21/22 11:52:00 EST, Solution, [facility][id number], Partial fill upon patient request if the prescription is for a schedule II... Start Date: 06/21/22 Stop Date: 06/16/23 Status: Ordered Ambien 10 mg oral tablet See Instructions, 1/2- 1 tablet By Mouth Daily at bedtime, # 30 tablet, 1 Refills, Maintenance, 10/27/22 17:09:00 EDT, [facility] #[id number], Partial fill upon patient request if the prescription is for a schedule II opioid drug., 185, cm, 05/0... Start Date: 10/27/22 Status: Ordered apixaban 5 mg oral tablet 1 tablet = 5 mg, By Mouth, 2 times a day, # 60 tablet, 5 Refills, Maintenance, 08/10/22 12:52:00 EDT, Tablet, [facility] #[id number], Partial fill upon patient request if the [...] Refills, Maintenance, 09/01/22 7:55:00 EDT, EC Capsule, [facility] #[id number], Partial fill upon patient request if the prescription is for a sched... Start Date: 09/01/22 Stop Date: 11/30/22 Status: Ordered Spiriva Respimat 10 ACT 2.5 mcg/inh inhalation aerosol 2 puffs, Inhalation, Daily, # 4 Gm, 11 Refills, Maintenance, 07/21/22 16:56:00 EST, [facility] #[id number], Partial fill upon patient request if the prescription is for a schedule II opioid drug., 186, cm, 06/21/22 11:11:00 EST, Height, 85.3, kg,... Start Date: 07/21/22 Stop Date: 07/16/23 Status: Ordered Ventolin HFA 108 mcg/inh inhalation aerosol with adapter 2 puffs, Inhalation, Every 6 hours, PRN Wheezing/Shortness of Breath, # 18 Gm, 11 Refills, Maintenance, 06/21/22 11:57:00 EST, [facility] #[id number], Partial fill upon patient request if the prescription is for a schedule II opioid drug., 186, cm... Start Date: 06/21/22 Stop Date: 06/16/23 Status: Ordered zolpidem 10 mg oral tablet 1 tablet = 10 mg, By Mouth, Daily at bedtime, PRN as needed for insomnia, # 5 tablet, 0 Refills, Maintenance, 10/18/22 19:12:00 EDT, Tablet, [facility] #[id number], Partial fill upon patient request if the prescription is for a schedule II opioid... Start Date: 10/18/22 Status: Ordered Problem List Condition Confirmation Course [...] Active Screening for viral disease Confirmed Active Social History Social History Type Response Smoking Status Former smoker; Other : quit 2 weeks ago with Ch[facility]; entered on: 04/10/15 Sex Patient Care team information Care Team Personnel Name: Renée FERNANDEZ, Elba Ohara Position: [facility] Physician - Primary Care Member Role: PCP Address: Address: [address] [place] [address], [address] [place] [address]- Name: Chayito Roy RN Position: [facility] RN Member Role: Primary Care Nurse Name: Marry Zayas RN Position: [facility] [place] Nurse Member Role: Primary Care Nurse Care Team Related Persons Name: MAYLIN MERI Address: home [address] [place] [address] Name: KATI PEREZ Address: home [address] [place] [address] Name: DIONICIO ANTONIO Address: [place] [address] Name: LUIGI ANTONIO Address: home [address] [place] [address]
--- OUTSIDE RECORDS SUMMARY | 2023-05-21 22:45 | XMS_ITS | Continuity of Care Document ---
Author Name Unknown Organization [facility] Address [address] [facility], 3r d Floor, [address] [place] [address]- Care Team Providers Care Cylinder Press Operator Name Role Phone Renée FERNANDEZ, Elba Ohara Primary Care Physician [phone] [place] [facility] [place]23 [facility] [address] [place] Floor, [address] [place] [id number] Attending Physician: Silvano Culp MD Admitting Physician: Silvano Culp MD Referring Physician: Tish FERNANDEZ, Radhika Ohara Allergies, Adverse Reactions, Alerts Substance Reaction Severity Status OxyCONTIN vomiting Active codeine 1 severe vomiting Intermittent Active Adhesive Bandage 2 Active Percocet 7.5/325 vomiting Active 1Nausea/ vomiting 2blisters Immunizations Given [...] 11 Refills, Maintenance, 06/21/22 11:52:00 EST, Solution, [facility] #[id number], Partial fill upon patient request if the prescription is for a schedule II... Start Date: 06/21/22 Stop Date: 06/16/23 Status: Ordered Ambien 10 mg oral tablet See Instructions, 1/2- 1 tablet By Mouth Daily at bedtime, # 30 tablet, 1 Refills, Maintenance, 10/27/22 17:09:00 EDT, [facility] #[id number], Partial fill upon patient request if the prescription is for a schedule II opioid drug., 185, cm, 05/0... Start Date: 10/27/22 Status: Ordered apixaban 5 mg oral tablet 1 tablet = 5 mg, By Mouth, 2 times a day, # 60 tablet, 5 Refills, Maintenance, 08/10/22 12:52:00 EDT, Tablet, [facility] #[id number], Partial fill upon patient request if the [...] Refills, Maintenance, 09/01/22 7:55:00 EDT, EC Capsule, [facility] #[id number], Partial fill upon patient request if the prescription is for a sched... Start Date: 09/01/22 Stop Date: 11/30/22 Status: Ordered Spiriva Respimat 10 ACT 2.5 mcg/inh inhalation aerosol 2 puffs, Inhalation, Daily, # 4 Gm, 11 Refills, Maintenance, 07/21/22 16:56:00 EST, [facility] #[id number], Partial fill upon patient request if the prescription is for a schedule II opioid drug., 186, cm, 06/21/22 11:11:00 EST, Height, 85.3, kg,... Start Date: 07/21/22 Stop Date: 07/16/23 Status: Ordered Ventolin HFA 108 mcg/inh inhalation aerosol with adapter 2 puffs, Inhalation, Every 6 hours, PRN Wheezing/Shortness of Breath, # 18 Gm, 11 Refills, Maintenance, 06/21/22 11:57:00 EST, [facility] #[id number], Partial fill upon patient request if the prescription is for a schedule II opioid drug., 186, cm... Start Date: 06/21/22 Stop Date: 06/16/23 Status: Ordered zolpidem 10 mg oral tablet 1 tablet = 10 mg, By Mouth, Daily at bedtime, PRN as needed for insomnia, # 5 tablet, 0 Refills, Maintenance, 10/18/22 19:12:00 EDT, Tablet, [facility] #[id number], Partial fill upon patient request if the [...] Personnel Name: Renée FERNANDEZ, Elba Ohara Position: [facility] Physician - Primary Care Member Role: PCP Address: Address: [address] [place] [address], [address] [facility] [place] [address]- Name: Chayito Roy RN Position: [facility] RN Member Role: Primary Care Nurse Name: Marry Zayas RN Position: [facility] AMB Nurse Member Role: Primary Care Nurse Care Team Related Persons Name: MERI CARLISLE Address: home [address] [place] [address] Name: KATI PEREZ Address: home [address] [place] [address] Name: DIONICIO ANTONIO Address: [place] [address] Name: LUIGI ANTONIO Address: home [address] [place] [address]
--- OUTSIDE RECORDS SUMMARY | 2023-05-21 22:45 | XMS_ITS | Continuity of Care Document ---
Author Name Unknown Organization [facility] Address [address] [place] [id number]- Care Team Providers Care Environmental Health Technologist Name Role Phone Elba Chinchilla MD Primary Care Physician Encounter [facility] [place] Date(s): 06/30/22 - 07/30/22 [facility] [address] [place] [id number] Allergies, Adverse Reactions, Alerts Substance Reaction Severity [...] 11 Refills, Maintenance, 06/21/22 11:52:00 EST, Solution, [facility] #[id number], Partial fill upon patient request if the prescription is for a schedule II... Start Date: 06/21/22 Stop Date: 06/16/23 Status: Ordered Ambien 10 mg oral tablet See Instructions, 1/2- 1 tablet By Mouth Daily at bedtime, # 30 tablet, 0 Refills, Maintenance, 07/05/22 18:21:00 EST, [facility] #[id number], Partial fill upon patient request if the prescription is for a schedule II opioid drug., 186, cm, 05/30... Start Date: 07/05/22 Status: Ordered LORazepam 1 mg oral tablet 1 tablet = 1 mg, By Mouth, Daily at bedtime, 0 Refills, Maintenance, 02/16/19 22:05:33 EDT, Tablet Start Date: 02/16/19 Status: Ordered Nebulizer/Compressor See Instructions, # 1 [...] breakfast, # 30 capsule, 2 Refills, Maintenance, 06/06/22 14:42:00 EST, EC Capsule, [facility] #[id number], Partial fill upon patient request if the prescription is for a sched... Start Date: 06/06/22 Stop Date: 09/04/22 Status: Ordered Spiriva Respimat 10 ACT 2.5 mcg/inh inhalation aerosol 2 puffs, Inhalation, Daily, # 4 Gm, 11 Refills, Maintenance, 07/21/22 16:56:00 EST, [facility] #[id number], Partial fill upon patient request if the prescription is for a schedule II opioid drug., 186, cm, 06/21/22 11:11:00 EST, Height, 85.3, kg,... 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 Chest pain Confirmed Active Vaccine counseling Confirmed Active Diverticular disease Confirmed Active Dyspnea Confirmed Active Family hx of colon cancer Confirmed Active GERD (gastroesophageal reflux disease) Confirmed Active History of esophagitis Confirmed Active Insomnia Confirmed Active Healthcare maintenance Confirmed Active Prostate cancer screening Confirmed Active Elevated ferritin level Confirmed Active COPD type A Confirmed Active [...] Personnel Name: Renée FERNANDEZ, Elba Ohara Position: [facility] Primary Care Physician Member Role: PCP Address: Address: [address] [place] [address], [address] [place] [address]- Name: Chayito Roy RN Position: [facility] RN Member Role: Primary Care Nurse Name: Jenna Whitmore RN Position: [facility] STEPH[facility] Supv Member Role: Primary Care Nurse Name: Marry Zayas RN Position: [facility] [place] Nurse Member Role: Primary Care Nurse Care Team Related Persons Name: MERI CARLISLE Address: home [address] [place], [place] Name: KATI PEREZ Address: home [address] [place] [address] Name: DIONICIO ANTONIO Address: home [place], [place] Name: ANGELINE ANTONIO Address: home [address] [place], [place]
--- OUTSIDE RECORDS SUMMARY | 2023-05-21 22:45 | XMS_ITS | Continuity of Care Document ---
Author Name Unknown Organization [facility] Address [address] [place] [address]- Care Team Providers Care Cisco Unified Communications Engineer Name Role Phone Renée FERNANDEZ, Elba Ohara Primary Care Physician En[place] [facility] [place] [id number] Date(s): 03/16/23 - 04/15/[address] [address]- Attending Physician: Admtr, Elver8 Admitting Physician: Admtr, Ar8 Referring Physician: Admtr, Ar8 Allergies, Adverse Reactions, [...] Maintenance, 06/21/22 11:52:00 EST, Solution, [facility] #[id number], Partial fill upon patient request if the prescription is for a schedule II... Start Date: 06/21/22 Stop Date: 06/16/23 Status: Ordered Ambien 10 mg oral tablet See Instructions, 1/2- 1 tablet By Mouth Daily at bedtime, # 30 tablet, 1 Refills, Maintenance, 10/27/22 17:09:00 EDT, [facility] #[id number], Partial fill upon patient request if the prescription is for a schedule II opioid drug., 185, cm, 05/0... Start Date: 10/27/22 Status: Ordered apixaban 5 mg oral tablet 1 tablet = 5 mg, By Mouth, 2 times a day, # 60 tablet, 5 Refills, Maintenance, 08/10/22 12:52:00 EDT, Tablet, [facility] #[id number], Partial fill upon patient request if the [...] Refills, Maintenance, 09/01/22 7:55:00 EDT, EC Capsule, [facility] #[id number], Partial fill upon patient request if the prescription is for a sched... Start Date: 09/01/22 Stop Date: 11/30/22 Status: Ordered Spiriva Respimat 10 ACT 2.5 mcg/inh inhalation aerosol 2 puffs, Inhalation, Daily, # 4 Gm, 11 Refills, Maintenance, 07/21/22 16:56:00 EST, [facility] #[id number], Partial fill upon patient request if the prescription is for a schedule II opioid drug., 186, cm, 06/21/22 11:11:00 EST, Height, 85.3, kg,... Start Date: 07/21/22 Stop Date: 07/16/23 Status: Ordered Ventolin HFA 108 mcg/inh inhalation aerosol with adapter 2 puffs, Inhalation, Every 6 hours, PRN Wheezing/Shortness of Breath, # 18 Gm, 11 Refills, Maintenance, 06/21/22 11:57:00 EST, [facility] #[id number], Partial fill upon patient request if the prescription is for a schedule II opioid drug., 186, cm... Start Date: 06/21/22 Stop Date: 06/16/23 Status: Ordered zolpidem 10 mg oral tablet 1 tablet = 10 mg, By Mouth, Daily at bedtime, PRN as needed for insomnia, # 5 tablet, 0 Refills, Maintenance, 10/18/22 19:12:00 EDT, Tablet, [facility] #[id number], Partial fill upon patient request if the [...] ago with [facility]; entered on: 04/10/15 Sex Laboratory * Event Display: Non Lab Results Authored Date: Patient Care team information Care Team Personnel Name: Renée FERNANDEZ, Elba Ohara Position: [facility] Physician - Primary Care Member Role: PCP Address: Address: [address] [place] [address], [address] [place] [address]- Name: Shahab Ramos RN, Chayito Position: [facility] RN Member Role: Primary Care Nurse Name: Marry Zayas RN Position: [facility] AMB Nurse Member Role: Primary Care Nurse Care Team Related Persons Name: MERI CARLISLE Address: home [address] [place] [address] Name: KATI PEREZ Address: home [address] [place] [address] Name: DIONICIO ANTONIO Address: [place] [address] Name: LUIGI ANTONIO Address: home [address] [place] [address]
--- OUTSIDE RECORDS SUMMARY | 2023-05-21 22:45 | XMS_ITS | Continuity of Care Document ---
Author Name Unknown Organization [facility] Address [address] [place] [address]- Care Team Providers Care Quality Control Supervisor Name Role Phone Renée FERNANDEZ, Elba Ohara Primary Care Physician Encounter [facility] [place] Date(s): 02/01/23 - 03/03/23 [facility] [address] [place] [id number] Allergies, Adverse Reactions, Alerts Substance Reaction Severity [...] Maintenance, 06/21/22 11:52:00 EST, Solution, [facility] #[id number], Partial fill upon patient request if the prescription is for a schedule II... Start Date: 06/21/22 Stop Date: 06/16/23 Status: Ordered Ambien 10 mg oral tablet See Instructions, 1/2- 1 tablet By Mouth Daily at bedtime, # 30 tablet, 1 Refills, Maintenance, 10/27/22 17:09:00 EDT, [facility] #[id number], Partial fill upon patient request if the prescription is for a schedule II opioid drug., 185, cm, 05/0... Start Date: 10/27/22 Status: Ordered apixaban 5 mg oral tablet 1 tablet = 5 mg, By Mouth, 2 times a day, # 60 tablet, 5 Refills, Maintenance, 08/10/22 12:52:00 EDT, Tablet, [facility] #[id number], Partial fill upon patient request if the [...] Refills, Maintenance, 09/01/22 7:55:00 EDT, EC Capsule, [facility] #[id number], Partial fill upon patient request if the prescription is for a sched... Start Date: 09/01/22 Stop Date: 11/30/22 Status: Ordered Spiriva Respimat 10 ACT 2.5 mcg/inh inhalation aerosol 2 puffs, Inhalation, Daily, # 4 Gm, 11 Refills, Maintenance, 07/21/22 16:56:00 EST, [facility] #[id number], Partial fill upon patient request if the prescription is for a schedule II opioid drug., 186, cm, 06/21/22 11:11:00 EST, Height, 85.3, kg,... Start Date: 07/21/22 Stop Date: 07/16/23 Status: Ordered Ventolin HFA 108 mcg/inh inhalation aerosol with adapter 2 puffs, Inhalation, Every 6 hours, PRN Wheezing/Shortness of Breath, # 18 Gm, 11 Refills, Maintenance, 06/21/22 11:57:00 EST, [facility] #[id number], Partial fill upon patient request if the prescription is for a schedule II opioid drug., 186, cm... Start Date: 06/21/22 Stop Date: 06/16/23 Status: Ordered zolpidem 10 mg oral tablet 1 tablet = 10 mg, By Mouth, Daily at bedtime, PRN as needed for insomnia, # 5 tablet, 0 Refills, Maintenance, 10/18/22 19:12:00 EDT, Tablet, [facility] #[id number], Partial fill upon patient request if the [...] Care team information Care Team Personnel Name: Elba Chinchilla MD Position: [facility] Physician - Primary Care Member Role: PCP Address: Address: [address] [place] [address], [address] [facility] [place] [address]- Name: Chayito Roy RN Position: [facility] RN Member Role: Primary Care Nurse Name: Marry Zayas RN Position: [facility] [place] Nurse Member Role: Primary Care Nurse Care Team Related Persons Name: DANN CARLISLEY Address: home [address] [place] [address] Name: KATI PEREZ Address: home [address] [place] [address] Name: DIONICIO ANTONIO Address: [place] [address] Name: LUIGI ANTONIO Address: home [address] [place] [id number]
--- OUTSIDE RECORDS SUMMARY | 2023-05-21 22:45 | XMS_ITS | Continuity of Care Document ---
Author Name Unknown Organization [facility] Address [address] [place] [address]- Care Team Providers Care Sample Body Builder Name Role Phone Renée FERNANDEZ, Elba Ohara Primary Care Physician Encounter [facility] Date(s): 07/04/22 - 09/21/[address] [address]- Attending Physician: Tracey Rodríguez MD Admitting Physician: Tracey Rodríguez MD Referring Physician: Not on Staff, Referring MD Allergies, Adverse Reactions, Alerts Substance Reaction [...] 11 Refills, Maintenance, 06/21/22 11:52:00 EST, Solution, [facility] #[id number], Partial fill upon patient request if the prescription is for a schedule II... Start Date: 06/21/22 Stop Date: 06/16/23 Status: Ordered Ambien 10 mg oral tablet See Instructions, 1/2- 1 tablet By Mouth Daily at bedtime, # 30 tablet, 1 Refills, Maintenance, 08/10/22 12:22:00 EDT, [facility] #[id number], Partial fill upon patient request if the prescription is for a schedule II opioid drug., 186, cm, 07/27... Start Date: 08/10/22 Status: Ordered apixaban 5 mg oral tablet 1 tablet = 5 mg, By Mouth, 2 times a day, # 60 tablet, 5 Refills, Maintenance, 08/10/22 12:52:00 EDT, Tablet, [facility] #[id number], Partial fill upon patient request if the prescription is fora schedule II opioid drug., 186, cm, 08/10/22 11:46... Start Date: 08/10/22 Status: Ordered Golytely - oral powder for reconstitution 240 mL, By Mouth, Every 15 minutes, Start prep at 5 pm the night before the procedure. Take 1/2 of the prep Take the othe 1/2 6 hours before the procedure, # 1 each, 0 Refills, Maintenance, 08/15/22 12:49:00 EDT, REC Powder, [facility] #[id number]... Start Date: 08/15/22 Status: Ordered LORazepam 1 mg oral tablet [...] Refills, Maintenance, 09/01/22 7:55:00 EDT, EC Capsule, [facility] #[id number], Partial fill upon patient request if the prescription is for a sched... Start Date: 09/01/22 Stop Date: 11/30/22 Status: Ordered Spiriva Respimat 10 ACT 2.5 mcg/inh inhalation aerosol 2 puffs, Inhalation, Daily, # 4 Gm, 11 Refills, Maintenance, 07/21/22 16:56:00 EST, [facility] #[id number], Partial fill upon patient request if the prescription is for a schedule II opioid drug., 186, cm, 06/21/22 11:11:00 EST, Height, 85.3, kg,... Start Date: 07/21/22 Stop Date: 07/16/23 Status: Ordered Ventolin HFA 108 mcg/inh inhalation aerosol with adapter 2 puffs, Inhalation, Every 6 hours, PRN Wheezing/Shortness of Breath, # 18 Gm, 11 Refills, Maintenance, 06/21/22 11:57:00 EST, [facility] #[id number], Partial fill upon patient request if the [...] lung cancer Confirmed Active Insomnia Confirmed Active Obese class I Confirmed Active Healthcare maintenance Confirmed Active Prostate [...] Personnel Name: Renée FERNANDEZ, Elba Ohara Position: [facility] Primary Care Physician Member Role: PCP Address: Address: [address] [place] [address], [address] [place] [address]- Name: Shahab Ramos RN, Chayito Position: [facility] RN Member Role: Primary Care Nurse Name: Marry Zayas RN Position: [facility] AMB Nurse Member Role: Primary Care Nurse Care Team Related Persons Name: MERI CARLISLE Address: home [address] [place] [address] Name: KATI PEREZ Address: home [address] [place] [address] Name: DIONICIO ANTONIO Address: [place] [address] Name: LUIGI ANTONIO Address: home [address] [place] [address]
--- OUTSIDE RECORDS SUMMARY | 2023-05-21 22:45 | XMS_ITS | Continuity of Care Document ---
Author Name Unknown Organization [facility] Address [address] [place] [address]- Care Team Providers Care Note Specialist Name Role Phone Elba Chinchilla MD Primary Care Physician [phone] Encounter [facility] Date(s): 08/31/22 - 11/05/[address] [address]- Encounter Diagnosis Chronic obstructive pulmonary disease, unspecified(Final) - Discharge Disposition: A-D/C Home Attending Physician: Peter Sanchez MD Admitting Physician: Peter Sanchez MD Referring Physician: Elba Chinchilla MD Allergies, Adverse Reactions, Alerts Substance Reaction [...] 11 Refills, Maintenance, 06/21/22 11:52:00 EST, Solution, [facility] #[id number], Partial fill upon patient request if the prescription is for a schedule II... Start Date: 06/21/22 Stop Date: 06/16/23 Status: Ordered Ambien 10 mg oral tablet See Instructions, 2- 1 tablet By Mouth Daily at bedtime, # 30 tablet, 1 Refills, Maintenance, 10/27/22 17:09:00 EDT, [facility] #[id number], Partial fill upon patient request if the prescription is for a schedule II opioid drug., 185, cm, 05/0... Start Date: 10/27/22 Status: Ordered apixaban 5 mg oral tablet 1 tablet = 5 mg, By Mouth, 2 times a day, # 60 tablet, 5 Refills, Maintenance, 08/10/22 12:52:00 EDT, Tablet, [facility] #[id number], Partial fill upon patient request if the [...] Refills, Maintenance, 09/01/22 7:55:00 EDT, EC Capsule, [facility] #[id number], Partial fill upon patient request if the prescription is for a sched... Start Date: 09/01/22 Stop Date: 11/30/22 Status: Ordered Spiriva Respimat 10 ACT 2.5 mcg/inh inhalation aerosol 2 puffs, Inhalation, Daily, # 4 Gm, 11 Refills, Maintenance, 07/21/22 16:56:00 EST, [facility] #[id number], Partial fill upon patient request if the prescription is for a schedule II opioid drug., 186, cm, 06/21/22 11:11:00 EST, Height, 85.3, kg,... Start Date: 07/21/22 Stop Date: 07/16/23 Status: Ordered Ventolin HFA 108 mcg/inh inhalation aerosol with adapter 2 puffs, Inhalation, Every 6 hours, PRN Wheezing/Shortness of Breath, # 18 Gm, 11 Refills, Maintenance, 06/21/22 11:57:00 EST, [facility] #[id number], Partial fill upon patient request if the prescription is for a schedule II opioid drug., 186, cm... Start Date: 06/21/22 Stop Date: 06/16/23 Status: Ordered zolpidem 10 mg oral tablet 1 tablet = 10 mg, By Mouth, Daily at bedtime, PRN as needed for insomnia, # 5 tablet, 0 Refills, Maintenance, 10/18/22 19:12:00 EDT, Tablet, [facility] #[id number], Partial fill upon patient request if the [...] Personnel Name: Renée FERNANDEZ, Elba Ohara Position: [facility] Physician - Primary Care Member Role: PCP Address: Address: [address] [place] [address], [address] [place] [address]- Name: Chayito Roy RN Position: S RN Member Role: Primary Care Nurse Name: Marry Zayas RN Position: [facility] AMB Nurse Member Role: Primary Care Nurse Care Team Related Persons Name: MERI CARLISLE Address: home [address] [place] [address] Name: KATI PEREZ Address: home [address] [place] [address] Name: DIONICIO ANTONIO Address: [place] [address] Name: LUIGI ANTONIO Address: home [address] [place] [address]
--- OUTSIDE RECORDS SUMMARY | 2023-05-21 22:45 | XMS_ITS | Continuity of Care Document ---
Author Name Unknown Organization [facility] Address [address] [place] [address]- Care Team Providers Care Director Mortgage Name Role Phone Renée FERNANDEZ, Elba Ohara Primary Care Physician Encounter [facility] [id number] Date(s): 06/06/22 - 07/06/22 [facility] [address] [place] [address]- Attending Physician: Patt Brar Admitting Physician: AdmPatt benítez Referring Physician: Admtr, Ar8 Allergies, Adverse Reactions, Alerts Substance Reaction Severity Status OxyCONTIN vomiting Active codeine 1 severe vomiting Intermittent Active Adhesive Bandage 2 Active Percocet 7.5/325 vomiting Active 1Nausea/ vomiting 2blisters Immunizations Given and Recorded Vaccine Date Status Refusal Reason influenza virus vaccine, inactivated 04/05/16 Otto rded pneumococcal 23-valent vaccine 03/19/15 Given Medications Advair HFA 115 mcg / 21 mcg INHALE 2 PUFFS BY MOUTH TWICE DAILY Start Date: 07/05/22 Status: Ordered Advair HFA 115 mcg / 21 mcg 2 puffs, Inhalation, 2 times a day, # 1 each, 11 Refills, Maintenance, 06/21/22 11:57:00 EST, Aerosol, [facility] #[id number], Partial fill upon patient request if the prescription is for a schedule II opioid drug., 2 puffs Inhalation 2 times a da... Start Date: 06/21/22 Stop Date: 06/16/23 Status: Ordered albuterol 0.083% inhalation solution 3 mL = 2.5 mg, Neb, Every 6 hours, PRN as needed for wheezing, DX: COPD, J44.9, # 360 mL, 11 Refills, Maintenance, 06/21/22 11:52:00 EST, Solution, [facility] #[id number], Partial fill upon patient request if the prescription is for a schedule II... Start Date: 06/21/22 Stop Date: 06/16/23 Status: Ordered Ambien 10 mg oral tablet See Instructions, /2- 1 tablet By Mouth Daily at bedtime, # 30 tablet, 0 Refills, Maintenance, 07/05/22 18:21:00 EST, [facility] #[id number], Partial fill upon patient request if the prescription is for a schedule II opioid drug., 186, cm, 05/30... Start Date: 07/05/22 Status: Ordered Incruse Ellipta 62.5 mcg/inh inhalation powder 1 each, Inhalation, Every 24 hours, doses should be taken at least 24 hours apart, # 30 each, 11 Refills, Maintenance, 06/21/22 11:51:00 EST, Powder, [facility] #[id number], Partial fill upon patient request if the prescription is for a schedule I... Start Date: 06/21/22 Stop Date: 06/16/23 Status: Ordered LORazepam 1 mg oral tablet [...] use Dx... Start Date: 07/01/22 Status: Ordered NuLYTELY with Flavor Packs oral powder for reconstitution See Instructions, Per instruction sheet. The night before colonoscopy drink 240mL every 15-20 minutes until first half is gone. Repeat 6 hours prior to procedure., # 4,000 mL, 0 Refills, Maintenance,06/06/22 14:43:00 EST, [facility] #[id number],... Start Date: 06/06/22 Status: Ordered omeprazole 20 mg oral enteric coated capsule 1 capsule = 20 mg, By Mouth, Daily, take on empty stomach 30min before breakfast, # 30 capsule, 2 Refills, Maintenance, 06/06/22 14:42:00 EST, EC Capsule, [facility] #[id number], Partial fill upon patient request if the prescription is for a sched... Start Date: 06/06/22 Stop Date: 09/04/22 Status: Ordered sertraline 100 mg oral tablet 1 tablet = 100 mg, By Mouth, Daily, # 30 tablet, 0 Refills, Maintenance, 02/16/19 22:07:34 EDT, Tablet Start Date: 02/16/19 Status: Ordered traZODone 100 mg oral tablet 1, tablet, By Mouth, Daily at bedtime, # 90 tablet, Refills 1, Route to Pharmacy Electronically, [facility] #[id number], 185.5, cm, 08/21/20 14:57:00 EDT, Height Start Date: 02/16/21 Status: Ordered Ventolin HFA 108 mcg/inh inhalation aerosol with adapter 2 puffs, Inhalation, Every 6 hours, PRN Wheezing/Shortness of Breath, # 18 Gm, 11 Refills, Maintenance, 06/21/22 11:57:00 EST, [facility] #[id number], Partial fill upon patient request if the prescription is for a schedule II opioid drug., 186, cm... 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 Vaccine counseling Confirmed Active Diverticular disease Confirmed Active Family hx of colon cancer Confirmed Active Insomnia Confirmed Active Healthcare [...] Team Personnel Name: Elba Chinchilla MD Position: S Primary Care Physician Member Role: PCP Address: Address: [address] [place] [address] [address] [facility] [place] [address]- Name: Chayito Roy RN Position: S RN Member Role: Primary Care Nurse Name: Marry Zayas RN Position: [facility] Nurse Member Role: Primary Care Nurse Care Team Related Persons Name: MERI CARLISLE Address: home [address] [place] [address] Name: KATI PEREZ Address: home [address] [place] [address] Name: DIONICIO ANTONIO Address: home [place], [place] Name: ANGELINE ANTONIO Address: home [address] [place] [address]
--- OUTSIDE RECORDS SUMMARY | 2023-05-21 22:45 | XMS_ITS | Continuity of Care Document ---
Author Name Unknown Organization [facility] Address [address] [place] [address]- Care Team Providers Care Business Broker Name Role Phone Renée FERNANDEZ, Elba Ohara [facility] Phys[id number] - 09/15/[facility] [address] [place] [address]- Discharge Disposition: A-D/C Home Attending Physician: Chelle Overton MD, Fredy Houston Admitting Physician: Chelle Overton MD, Fredy Houston Referring Physician: Elba Chinchilla MD Allergies, Adverse [...] 11 Refills, Maintenance, 06/21/22 11:52:00 EST, Solution, [facility] #[id number], Partial fill upon patient request if the prescription is for a schedule II... Start Date: 06/21/22 Stop Date: 06/16/23 Status: Ordered Ambien 10 mg oral tablet See Instructions, 1/2- 1 tablet By Mouth Daily at bedtime, # 30 tablet, 1 Refills, Maintenance, 08/10/22 12:22:00 EDT, [facility] #[id number], Partial fill upon patient request if the prescription is for a schedule II opioid drug., 186, cm, 07/27... Start Date: 08/10/22 Status: Ordered apixaban 5 mg oral tablet 1 tablet = 5 mg, By Mouth, 2 times a day, # 60 tablet, 5 Refills, Maintenance, 08/10/22 12:52:00 EDT, Tablet, [facility] #[id number], Partial fill upon patient request if the [...] Refills, Maintenance, 08/15/22 12:49:00 EDT, REC Powder, [facility] #[id number]... Start Date: 08/15/22 Status: Ordered [...] Refills, Maintenance, 09/01/22 7:55:00 EDT, EC Capsule, [facility] #[id number], Partial fill upon patient request if the prescription is for a sched... Start Date: 09/01/22 Stop Date: 11/30/22 Status: Ordered Spiriva Respimat 10 ACT 2.5 mcg/inh inhalation aerosol 2 puffs, Inhalation, Daily, # 4 Gm, 11 Refills, Maintenance, 07/21/22 16:56:00 EST, [facility] #[id number], Partial fill upon patient request if the prescription is for a schedule II opioid drug., 186, cm, 06/21/22 11:11:00 EST, Height, 85.3, kg,... Start Date: 07/21/22 Stop Date: 07/16/23 Status: Ordered Ventolin HFA 108 mcg/inh inhalation aerosol with adapter 2 puffs, Inhalation, Every 6 hours, PRN Wheezing/Shortness of Breath, # 18 Gm, 11 Refills, Maintenance, 06/21/22 11:57:00 EST, [facility] #[id number], Partial fill upon patient request if the [...] Personnel Name: Renée FERNANDEZ, Elba Ohara Position: [facility] Primary Care Physician Member Role: PCP Address: Address: [address] [place] [address], [address] [place] [address]- Name: Shahab Ramos RN, Chayito Position: [facility] RN Member Role: Primary Care Nurse Name: Marry Zayas RN Position: [facility] AMB Nurse Member Role: Primary Care Nurse Care Team Related Persons Name: MERI CARLISLE Address: home [address] [place] [address] Name: KATI PEREZ Address: home [address] [place] [address] Name: DIONICIO ANTONIO Address: home [place], [place] Name: LUIGI ANTONIO Address: home [address] [place] [address]
--- OUTSIDE RECORDS SUMMARY | 2023-05-21 22:45 | XMS_ITS | Continuity of Care Document ---
Author Name Unknown Organization [facility] Address [address] [place] [address]- Care Team Providers Care Documentation Manager Name Role Phone Renée FERNANDEZ, Elba Ohara Primary Care Physician [facility] [id number] Date(s): 09/16/22 - 10/16/[address] [address]- Allergies, Adverse Reactions, Alerts Substance Reaction Severity [...] 11 Refills, Maintenance, 06/21/22 11:52:00 EST, Solution, [facility] #[id number], Partial fill upon patient request if the prescription is for a schedule II... Start Date: 06/21/22 Stop Date: 06/16/23 Status: Ordered Ambien 10 mg oral tablet See Instructions, 1/2- 1 tablet By Mouth Daily at bedtime, # 30 tablet, 1 Refills, Maintenance, 08/10/22 12:22:00 EDT, [facility] #[id number], Partial fill upon patient request if the prescription is for a schedule II opioid drug., 186, cm, 07/27... Start Date: 08/10/22 Status: Ordered apixaban 5 mg oral tablet 1 tablet = 5 mg, By Mouth, 2 times a day, # 60 tablet, 5 Refills, Maintenance, 08/10/22 12:52:00 EDT, Tablet, [facility] #[id number], Partial fill upon patient request if the [...] Refills, Maintenance, 09/01/22 7:55:00 EDT, EC Capsule, [facility] #[id number], Partial fill upon patient request if the prescription is for a sched... Start Date: 09/01/22 Stop Date: 11/30/22 Status: Ordered Spiriva Respimat 10 ACT 2.5 mcg/inh inhalation aerosol 2 puffs, Inhalation, Daily, # 4 Gm, 11 Refills, Maintenance, 07/21/22 16:56:00 EST, [facility] #[id number], Partial fill upon patient request if the prescription is for a schedule II opioid drug., 186, cm, 06/21/22 11:11:00 EST, Height, 85.3, kg,... Start Date: 07/21/22 Stop Date: 07/16/23 Status: Ordered Ventolin HFA 108 mcg/inh inhalation aerosol with adapter 2 puffs, Inhalation, Every 6 hours, PRN Wheezing/Shortness of Breath, # 18 Gm, 11 Refills, Maintenance, 06/21/22 11:57:00 EST, [facility] #[id number], Partial fill upon patient request if the [...] Personnel Name: Renée FERNANDEZ, Elba Ohara Position: [facility] Primary Care Physician Member Role: PCP Address: Address: [address] [place] [address], [address] [place] [address]- Name: Chayito Roy RN Position: [facility] RN Member Role: Primary Care Nurse Name: Marry Zayas RN Position: [facility] Nurse Member Role: Primary Care Nurse Care Team Related Persons Name: MERI CARLISLE Address: home [address] [place], [place] Name: KATI PEREZ Address: home [address] [place] [address] Name: DIONICIO ANTONIO Address: home [place], [place] Name: LUIGI ANTONIO Address: home [address] [place] [address]
--- OUTSIDE RECORDS SUMMARY | 2023-05-21 22:45 | XMS_ITS | Continuity of Care Document ---
Author Name Unknown Organization [facility] Address [address] [place] [address]- Care Team Providers Care Professor Of Forestry Name Role Phone Renée FERNANDEZ, Elba Ohara Primary Care Physician Encounter [facility] Date(s): 09/08/22 - 10/08/22 [facility] [address] [place] [address]- [place] Allergies, Adverse Reactions, Alerts Substance Reaction Severity [...] 11 Refills, Maintenance, 06/21/22 11:52:00 EST, Solution, [facility] #[id number], Partial fill upon patient request if the prescription is for a schedule II... Start Date: 06/21/22 Stop Date: 06/16/23 Status: Ordered Ambien 10 mg oral tablet See Instructions, 1/2- 1 tablet By Mouth Daily at bedtime, # 30 tablet, 1 Refills, Maintenance, 08/10/22 12:22:00 EDT, [facility] #[id number], Partial fill upon patient request if the prescription is for a schedule II opioid drug., 186, cm, 07/27... Start Date: 08/10/22 Status: Ordered apixaban 5 mg oral tablet 1 tablet = 5 mg, By Mouth, 2 times a day, # 60 tablet, 5 Refills, Maintenance, 08/10/22 12:52:00 EDT, Tablet, [facility] #[id number], Partial fill upon patient request if the [...] Refills, Maintenance, 09/01/22 7:55:00 EDT, EC Capsule, [facility] #[id number], Partial fill upon patient request if the prescription is for a sched... Start Date: 09/01/22 Stop Date: 11/30/22 Status: Ordered Spiriva Respimat 10 ACT 2.5 mcg/inh inhalation aerosol 2 puffs, Inhalation, Daily, # 4 Gm, 11 Refills, Maintenance, 07/21/22 16:56:00 EST, [facility] #[id number], Partial fill upon patient request if the prescription is for a schedule II opioid drug., 186, cm, 06/21/22 11:11:00 EST, Height, 85.3, kg,... Start Date: 07/21/22 Stop Date: 07/16/23 Status: Ordered Ventolin HFA 108 mcg/inh inhalation aerosol with adapter 2 puffs, Inhalation, Every 6 hours, PRN Wheezing/Shortness of Breath, # 18 Gm, 11 Refills, Maintenance, 06/21/22 11:57:00 EST, [facility] #[id number], Partial fill upon patient request if the [...] Personnel Name: Renée FERNANDEZ, Elba Ohara Position: [facility] Primary Care Physician Member Role: PCP Address: Address: [address] [place] [address], [address] [place] [address]- Name: Chayito Roy RN Position: [facility] RN Member Role: Primary Care Nurse Name: Marry Zayas RN Position: [facility] Nurse Member Role: Primary Care Nurse Care Team Related Persons Name: MERI CARLISLE Address: home [address] [place] [address] Name: KATI PEREZ Address: home [address] [place] [address] Name: DIONICIO ANTONIO Address: home [place], [place] Name: LUIGI ANTONIO Address: home [address] [place], [place]
--- OUTSIDE RECORDS SUMMARY | 2023-05-21 22:45 | XMS_ITS | Continuity of Care Document ---
Author Name Unknown Organization [facility] Address [address] [place] [address]- Care Team Providers Care Program Rep Name Role Phone Renée FERNANDEZ, Elba Ohara Primary Care Physician [phone] Encounter [facility] Date(s): 12/28/22 - 01/27/[address] [address]- Attending Physician: AdmPatt benítez Admitting Physician: Admtr, Ar8 Referring Physician: Admtr, Ar8 Allergies, Adverse Reactions, Alerts Substance Reaction Severity Status codeine 1 severe vomiting Intermittent Active OxyCONTIN vomiting Active Adhesive Bandage 2 Active Percocet 7.5/325 [...] Maintenance, 06/21/22 11:52:00 EST, Solution, [facility] #[id number], Partial fill upon patient request if the prescription is for a schedule II... Start Date: 06/21/22 Stop Date: 06/16/23 Status: Ordered Ambien 10 mg oral tablet See Instructions, 1/2- 1 tablet By Mouth Daily at bedtime, # 30 tablet, 1 Refills, Maintenance, 10/27/22 17:09:00 EDT, [facility] #[id number], Partial fill upon patient request if the prescription is for a schedule II opioid drug., 185, cm, 05/0... Start Date: 10/27/22 Status: Ordered apixaban 5 mg oral tablet 1 tablet = 5 mg, By Mouth, 2 times a day, # 60 tablet, 5 Refills, Maintenance, 08/10/22 12:52:00 EDT, Tablet, [facility] #[id number], Partial fill upon patient request if the [...] Refills, Maintenance, 09/01/22 7:55:00 EDT, EC Capsule, [facility] #[id number], Partial fill upon patient request if the prescription is for a sched... Start Date: 09/01/22 Stop Date: 11/30/22 Status: Ordered Spiriva Respimat 10 ACT 2.5 mcg/inh inhalation aerosol 2 puffs, Inhalation, Daily, # 4 Gm, 11 Refills, Maintenance, 07/21/22 16:56:00 EST, [facility] #[id number], Partial fill upon patient request if the prescription is for a schedule II opioid drug., 186, cm, 06/21/22 11:11:00 EST, Height, 85.3, kg,... Start Date: 07/21/22 Stop Date: 07/16/23 Status: Ordered Ventolin HFA 108 mcg/inh inhalation aerosol with adapter 2 puffs, Inhalation, Every 6 hours, PRN Wheezing/Shortness of Breath, # 18 Gm, 11 Refills, Maintenance, 06/21/22 11:57:00 EST, [facility] #[id number], Partial fill upon patient request if the prescription is for a schedule II opioid drug., 186, cm... Start Date: 06/21/22 Stop Date: 06/16/23 Status: Ordered zolpidem 10 mg oral tablet 1 tablet = 10 mg, By Mouth, Daily at bedtime, PRN as needed for insomnia, # 5 tablet, 0 Refills, Maintenance, 10/18/22 19:12:00 EDT, Tablet, [facility] #[id number], Partial fill upon patient request if the [...] Personnel Name: Renée FERNANDEZ, Elba Ohara Position: [facility] Physician - Primary Care Member Role: PCP Address: Address: [address] [place] [address], [address] [place] [address]- Name: Chayito Roy RN Position: [facility] RN Member Role: Primary Care Nurse Name: Marry Zayas RN Position: [facility] Nurse Member Role: Primary Care Nurse Care Team Related Persons Name: MERI CARLISLE Address: [address] [place] [address] Name: KATI PEREZ Address: home [address] [place] [address] Name: DIONICIO ANTONIO Address: [place] [address] Name: LUIGI ANTONIO Address: home [address] [place] [address]
--- OUTSIDE RECORDS SUMMARY | 2023-05-21 22:45 | XMS_ITS | Continuity of Care Document ---
Author Name Unknown Organization [facility] ancer Care Address [address] [place] [address]- Care Team Providers Care Aesthetician Name Role Phone Renée FERNANDEZ, Elba Ohara Primary Care Physician [place] [facility] [id number] Date(s): 09/15/22 - 10/15/22 [place] [address] [place] [address]- Attending Physician: Admtr, Elver8 Admitting Physician: Admtr, [...] Maintenance, 06/21/22 11:52:00 EST, Solution, [facility][id number], Partial fill upon patient request if the prescription is for a schedule II... Start Date: 06/21/22 Stop Date: 06/16/23 Status: Ordered Ambien 10 mg oral tablet See Instructions, /2- 1 tablet By Mouth Daily at bedtime, # 30 tablet, 1 Refills, Maintenance, 08/10/22 12:22:00 EDT, [facility] #[id number], Partial fill upon patient request if the prescription is for a schedule II opioid drug., 186, cm, 07/27... Start Date: 08/10/22 Status: Ordered apixaban 5 mg oral tablet 1 tablet = 5 mg, By Mouth, 2 times a day, # 60 tablet, 5 Refills, Maintenance, 08/10/22 12:52:00 EDT, Tablet, [facility] #[id number], Partial fill upon patient request if the [...] Refills, Maintenance, 09/01/22 7:55:00 EDT, EC Capsule, [facility] #[id number], Partial fill upon patient request if the prescription is for a sched... Start Date: 09/01/22 Stop Date: 11/30/22 Status: Ordered Spiriva Respimat 10 ACT 2.5 mcg/inh inhalation aerosol 2 puffs, Inhalation, Daily, # 4 Gm, 11 Refills, Maintenance, 07/21/22 16:56:00 EST, [facility] #[id number], Partial fill upon patient request if the prescription is for a schedule II opioid drug., 186, cm, 06/21/22 11:11:00 EST, Height, 85.3, kg,... Start Date: 07/21/22 Stop Date: 07/16/23 Status: Ordered Ventolin HFA 108 mcg/inh inhalation aerosol with adapter 2 puffs, Inhalation, Every 6 hours, PRN Wheezing/Shortness of Breath, # 18 Gm, 11 Refills, Maintenance, 06/21/22 11:57:00 EST, [facility] #[id number], Partial fill upon patient request if the [...] Team Personnel Name: Elba Chinchilla MD Position: [facility] Primary Care Physician Member Role: PCP Address: Address: [address] [place] [address], [address] [place] [address]- Name: Chayito Roy RN Position: [facility] RN Member Role: Primary Care Nurse Name: Marry Zayas RN Position: [facility] Nurse Member Role: Primary Care Nurse Care Team Related Persons Name: MAYLINMERI Address: home [address] [place] [address] Name: KATI PEREZ Address: home [address] [place] [address] Name: DIONICIO ANTONIO Address: [place] [address] Name: LUIGI ANTONIO Address: home [address] [place] [address]
--- OUTSIDE RECORDS SUMMARY | 2023-05-21 22:45 | XMS_ITS | Continuity of Care Document ---
Author Name Unknown Organization [facility] ancer Care Address [address] [place] [address]- Care Team Providers Care Extract Operator Name Role Phone Renée FERNANDEZ, Elba Ohara Primary Care Phys[place] [facility] [place]16/22 [facility] [address] [place] [address]- Discharge Disposition: A-D/C Home Attending Physician: Chelle [...] 11 Refills, Maintenance, 06/21/22 11:52:00 EST, Solution, [facility][id number], Partial fill upon patient request if the prescription is for a schedule II... Start Date: 06/21/22 Stop Date: 06/16/23 Status: Ordered Ambien 10 mg oral tablet See Instructions, 1/2- 1 tablet By Mouth Daily at bedtime, # 30 tablet, 1 Refills, Maintenance, 10/27/22 17:09:00 EDT, [facility] #[id number], Partial fill upon patient request if the prescription is for a schedule II opioid drug., 185, cm, 05/0... Start Date: 10/27/22 Status: Ordered apixaban 5 mg oral tablet 1 tablet = 5 mg, By Mouth, 2 times a day, # 60 tablet, 5 Refills, Maintenance, 08/10/22 12:52:00 EDT, Tablet, [facility] #[id number], Partial fill upon patient request if the [...] Refills, Maintenance, 09/01/22 7:55:00 EDT, EC Capsule, [facility] #[id number], Partial fill upon patient request if the prescription is for a sched... Start Date: 09/01/22 Stop Date: 11/30/22 Status: Ordered Spiriva Respimat 10 ACT 2.5 mcg/inh inhalation aerosol 2 puffs, Inhalation, Daily, # 4 Gm, 11 Refills, Maintenance, 07/21/22 16:56:00 EST, [facility] #[id number], Partial fill upon patient request if the prescription is for a schedule II opioid drug., 186, cm, 06/21/22 11:11:00 EST, Height, 85.3, kg,... Start Date: 07/21/22 Stop Date: 07/16/23 Status: Ordered Ventolin HFA 108 mcg/inh inhalation aerosol with adapter 2 puffs, Inhalation, Every 6 hours, PRN Wheezing/Shortness of Breath, # 18 Gm, 11 Refills, Maintenance, 06/21/22 11:57:00 EST, [facility] #[id number], Partial fill upon patient request if the prescription is for a schedule II opioid drug., 186, cm... Start Date: 06/21/22 Stop Date: 06/16/23 Status: Ordered zolpidem 10 mg oral tablet 1 tablet = 10 mg, By Mouth, Daily at bedtime, PRN as needed for insomnia, # 5 tablet, 0 Refills, Maintenance, 10/18/22 19:12:00 EDT, Tablet, [facility] #[id number], Partial fill upon patient request if the [...] recent to oldest [Reference Range]: 1 2 Height 185 cm (11/16/22 11:27 AM) 176.9 cm (09/16/22 9:07 AM) Weight 95.2 kg (11/16/22 11:27 AM) 95.0 kg (09/16/22 9:07 AM) Oxygen Saturation [94-100 %] 93 % *L* (11/16/22 11:27 AM) 96 % (09/16/22 9:07 AM) Pulse Rate [55-90 bpm] 80 bpm (11/16/22 11:27 AM) 86 bpm (09/16/22 9:07 AM) Body Mass Index [18.5-24.99 kg/m2] 27.82 kg/m2 *H* (11/16/22 11:27 AM) 30.36 kg/m2 *>HHI* (09/16/22 9:07 AM) Blood Pressure [90-138/55-84 mm Hg] 114/ 83mm Hg (11/16/22 11:27 AM) 127/78mm Hg (09/16/22 9:07 AM) Temperature [96.8-100.4 DegF] 97.8 DegF (11/16/22 11:27 AM) 98.3 DegF (09/16/22 9:07 AM) Mode of Delivery (Oxygen) Room air (11/16/22 11:27 AM) Blood pressure sites Arm, left (11/16/22 11:27 AM) Arm, right (09/16/22 9:07 AM) Temperature Route Oral (11/16/22 11:27 AM) Oral (09/16/22 9:07 AM) Dry Weight 95.2 kg (11/16/22 11:27 AM) 95.0 kg (09/16/22 9:07 AM) Weight Obtained Via Standing scale (11/16/22 11:27 AM) Standing scale (09/16/22 9:07 AM) Dry Weight Obtained Via Standing scale (11/16/22 11:27 AM) Standing scale (09/16/22 9:07 AM) Social History Social History Type Response Smoking Status Former smoker; Other : quit 2 weeks ago with [employer]; entered on: 04/10/15 Sex Note * Svetlana Gold [place]: PERFORM, SIGN, VERIFY Event Display: Patient Education/Instruction Authored Date: [id number] [facility] *Heme/Onc Adult Clinical Summary Name WILFRID ANTONIO Age 62 Years 1960 PCP Renée FERNANDEZ, Elba Ohara PCP Visit Date 09/15/2022 11:42:00 Additional Instructions: Scheduled Appointments?? Future Appointments ?[facility] ?Phone:??--?Fax:??-- ?Appt. Date:??09/28/2022?1:00 PM ?Scheduled Provider:??Luis Gann MD ?*[facility] [address] ?[address] ?[place],??[place],??[address] ?Phone:??--?Fax:??-- ?Appt. Date:??11/10/2022?11:30 AM ?Scheduled Provider:??Elba Chinchilla MD ?*[facility] ?[address] ?[address] ?[place],??[place],??[address] ?Phone:??--?Fax:??-- ?Appt. Date:??11/22/2022?11:00 AM ?Scheduled Provider:??Elba Chinchilla MD Follow-Up Instructions ?? With: Address: When: Fredy Overton [address] [place] [address]/[place] [address] [facility] (1) In 32 days 10/18/2022 Diagnosis Medications: Please continue your medications until treatment is completed or stopped by your provider. Discuss any questions related to medications with your provider. Medications to Continue with No Changes These medications were not printed or sent to your pharmacy Albuterol (albuterol 0.083% inhalation solution) 3 Milliliter Nebulized inhalation every 6 hours asneeded as needed for wheezing for 30 Days. DX: COPD, J44.9. Refills: 11. Next Dose: Albuterol (Ventolin HFA 108 mcg/inh inhalation aerosol with adapter) 2 puff(s) Inhalation every 6 hours as needed Wheezing/Shortness of Breath for 30 Days. Refills: 11. Next Dose: apixaban (apixaban 5 mg oral tablet) 1 tab(s) Oral twice a day. Refills: 5. Next Dose: Durable Medical Equipment (Aerochamber) 1 units. Refills: 1. Next Dose: Durable Medical Equipment (Nebulizer/Compressor) E0570 Nebulizer A7003 Neb Disp Set A7014 Neb non-Disp Filter A7005 Neb Non-Disp set A7015 Aerosol Mask A7013 Neb Disp Filter length of need lifetime 99 months for home use Dx COPD J44.9. Refills: 11. Next Dose: Lorazepam (LORazepam 1 mg oral tablet) 1 tab(s) Oral Daily at Bedtime. Next Dose: Omeprazole (omeprazole 20 mg oral enteric coated capsule) 1 capsule Oral Daily for 30 Days. take onempty stomach 30min before breakfast. Refills: 2. Next Dose: PEG Electrolyte Solution (Golytely - oral powder for reconstitution) 240 Milliliter Oral every 15 minutes. Start prep at 5 pm the night before the procedure. Take 1/2 of the prep Take the othe 1/2 6 hours before the procedure. Refills: 0. Next Dose: Tiotropium (Spiriva Respimat 10 ACT 2.5 mcg/inh inhalation aerosol) 2 puff(s) Inhalation Daily for 30 Days. Refills: 11. Next Dose: Zolpidem (Ambien 10 mg oral tablet) 1/2- 1 tablet By Mouth Daily at bedtime. Refills: 1. Next Dose: Zolpidem (zolpidem 10 mg oral tablet) 1 tab(s) Oral Daily at Bedtime as needed as needed for insomnia. Next Dose: Allergy Info:?? OxyCONTIN; Percocet 7.5/325; Adhesive Bandage; codeine Medications Given This Visit Future Orders ?No future orders Vital Signs Height 176.9 cm Weight 95.0 kg BMI 30.36 kg/m2 Blood Pressure 127 mm Hg/78 mm Hg Temperature 98.3 DegF Pulse Rate 86 bpm Respiratory Rate 02 Sat Mode of Delivery 96 %/ You can now view a summary of your hospital visit from the comfort of your home through a free online portal called [employer]. [employer] is a website that allows you to securely view your medical information including discharge summary, medications and follow-up visits. ??You can alsosend a secure electronic message to your doctor???s office to request appointments, renew medications or just ask a question. You can enroll at [email or web address] or register during your next office visit. Disclaimer:?? The information provided is of a general nature and is intended to be used in conjunction with the recommendations and advice of your health care practitioner. ??Every effort has been made to ensure that the information provided is accurate and complete at the time it is provided to you however, as your needs change, or, as new ??information becomes available, different or additional instructions may be required. If you have questions, please consult with your primary care provider or pharmacist, as appropriate. ??This information is not intended to serve as substitution for assessment and evaluation by a qualified health care provider. If you do not have a primary care provider, you may find a [facility] provider by calling [facility] [employer] Link at [phone]. For information about the plan of care including goals and instructions for your diagnosis, please see the patient education orders section of this document. Patient Education Materials?? The content of this educational material or handout may have been modified, supplemented, or adapted from its original content and format to support your individualized medical care. Patient Care team information Care Team Personnel Name: Renée FERNANDEZ, Elba Ohara Position: [facility] Physician - Primary Care Member Role: PCP Address: Address: [address] [place] [address], [address] [place], [place] [facility] Name: Shahab Ramos RN, Chayito Position: [facility] RN Member Role: Primary Care Nurse Name: Marry Zayas RN Position: [facility] [place] Nurse Member Role: Primary Care Nurse Care Team Related Persons Name: MERI CARLISLE Address: home [address] [place] [address] Name: KATI PEREZ Address: home [address] [place] [address] Name: DIONICIO ANTONIO Address: home [place], [place] Name: LUIGI ANTONIO Address: home [address] [place] [address]
--- OUTSIDE RECORDS SUMMARY | 2023-05-21 22:45 | XMS_ITS | Continuity of Care Document ---
Author Name Unknown Organization [facility] ancer Care Address [address] [place] [address]- Care Team Providers Care Anesthesia Resident Name Role Phone Renée FERNANDEZ, Elba Ohara Primary Care Physician [place] [facility] [place] [id number] Date(s): 06/20/22 - 07/20/[address] [address]- Attending Physician: AdmPatt benítez Admitting Physician: Admtr, Patt Referring Physician: Admtr, [...] 11 Refills, Maintenance, 06/21/22 11:57:00 EST, Aerosol, [facility] #[id number], Partial fill upon patient request if the prescription is for a schedule II opioid drug., 2 puffs Inhalation 2 times a da... Start Date: 06/21/22 Stop Date: 06/16/23 Status: Ordered albuterol 0.083% inhalation solution 3 mL = 2.5 mg, Neb, Every 6 hours, PRN as needed for wheezing, DX: COPD, J44.9, # 360 mL, 11 Refills, Maintenance, 06/21/22 11:52:00 EST, Solution, [facility] #[id number], Partial fill upon patient request if the prescription is for a schedule II... Start Date: 06/21/22 Stop Date: 06/16/23 Status: Ordered Ambien 10 mg oral tablet See Instructions, /2- 1 tablet By Mouth Daily at bedtime, # 30 tablet, 0 Refills, Maintenance, 07/05/22 18:21:00 [facility] #[id number], Partial fill upon patient request if the prescription is for a schedule II opioid drug., 186, cm, 05/30... Start Date: 07/05/22 Status: Ordered Incruse Ellipta 62.5 mcg/inh inhalation powder 1 each, Inhalation, Every 24 hours, doses should be taken at least 24 hours apart, # 30 each, 11 Refills, Maintenance, 06/21/22 11:51:00 EST, Powder, [facility] #[id number], Partial fill upon patient request if the [...] 4,000 mL, 0 Refills, Maintenance,06/06/22 14:43:00 EST, [facility] #[id number],... Start Date: 06/06/22 Status: Ordered omeprazole 20 mg oral enteric coated capsule 1 capsule = 20 mg, By Mouth, Daily, take on empty stomach 30min before breakfast, # 30 capsule, 2 Refills, Maintenance, 06/06/22 14:42:00 EST, EC Capsule, [facility] #[id number], Partial fill upon patient request if the [...] tablet, Refills 1, Route to Pharmacy Electronically, [facility] #[id number], 185.5, cm, 08/21/20 14:57:00 EDT, Height Start Date: 02/16/21 Status: Ordered Ventolin HFA 108 mcg/inh inhalation aerosol with adapter 2 puffs, Inhalation, Every 6 hours, PRN Wheezing/Shortness of Breath, # 18 Gm, 11 Refills, Maintenance, 06/21/22 11:57:00 EST, [facility] #[id number], Partial fill upon patient request if the [...] Personnel Name: Renée FERNANDEZ, Elba Ohara Position: [facility] Primary Care Physician Member Role: PCP Address: Address: [address] [place] [address], [address] [place] [address]- Name: Shahab Ramos RN, Chayito Position: [facility] RN Member Role: Primary Care Nurse Name: Marry Zayas RN Position: [facility] AMB Nurse Member Role: Primary Care Nurse Care Team Related Persons Name: MAYLINMERI Address: home [address] [place] [address] Name: KATI PEREZ Address: home [address] [place] [address] Name: DIONICIO ANTONIO Address: [place] [address] Name: ANGELINE ANTONIO Address: home [address] [place] [address]
--- OUTSIDE RECORDS SUMMARY | 2023-05-21 22:45 | XMS_ITS | Continuity of Care Document ---
Author Name Unknown Organization [facility] Address [address] [place] [address]- Care Team Providers Care Heater Furnace Name Role Phone Renée FERNANDEZ, Elba Ohara Primary Care Physician En[place] [facility] [place] Date(s): 11/21/22 - 02/05/[address] [address] Attending Physician: Fredy Dumont MD Admitting Physician: Fredy Dumont MD Referring Physician: Fredy Dumont MD Allergies, Adverse Reactions, Alerts Substance Reaction [...] 11 Refills, Maintenance, 06/21/22 11:52:00 EST, Solution, [facility] #[id number], Partial fill upon patient request if the prescription is for a schedule II... Start Date: 06/21/22 Stop Date: 06/16/23 Status: Ordered Ambien 10 mg oral tablet See Instructions, 2- 1 tablet By Mouth Daily at bedtime, # 30 tablet, 1 Refills, Maintenance, 10/27/22 17:09:00 EDT, [facility] #[id number], Partial fill upon patient request if the prescription is for a schedule II opioid drug., 185, cm, 05/0... Start Date: 10/27/22 Status: Ordered apixaban 5 mg oral tablet 1 tablet = 5 mg, By Mouth, 2 times a day, # 60 tablet, 5 Refills, Maintenance, 08/10/22 12:52:00 EDT, Tablet, [facility] #[id number], Partial fill upon patient request if the [...] Refills, Maintenance, 09/01/22 7:55:00 EDT, EC Capsule, [facility] #[id number], Partial fill upon patient request if the prescription is for a sched... Start Date: 09/01/22 Stop Date: 11/30/22 Status: Ordered Spiriva Respimat 10 ACT 2.5 mcg/inh inhalation aerosol 2 puffs, Inhalation, Daily, # 4 Gm, 11 Refills, Maintenance, 07/21/22 16:56:00 EST, [facility] #[id number], Partial fill upon patient request if the prescription is for a schedule II opioid drug., 186, cm, 06/21/22 11:11:00 EST, Height, 85.3, kg,... Start Date: 07/21/22 Stop Date: 07/16/23 Status: Ordered Ventolin HFA 108 mcg/inh inhalation aerosol with adapter 2 puffs, Inhalation, Every 6 hours, PRN Wheezing/Shortness of Breath, # 18 Gm, 11 Refills, Maintenance, 06/21/22 11:57:00 EST, [facility] #[id number], Partial fill upon patient request if the prescription is for a schedule II opioid drug., 186, cm... Start Date: 06/21/22 Stop Date: 06/16/23 Status: Ordered zolpidem 10 mg oral tablet 1 tablet = 10 mg, By Mouth, Daily at bedtime, PRN as needed for insomnia, # 5 tablet, 0 Refills, Maintenance, 10/18/22 19:12:00 EDT, Tablet, [facility] #[id number], Partial fill upon patient request if the [...] Personnel Name: Renée FERNANDEZ, Elba Ohara Position: [facility] Physician - Primary Care Member Role: PCP Address: Address: [address] [place] [address], [address] [place] [address]- Name: Chayito Roy RN Position: [facility] RN Member Role: Primary Care Nurse Name: Marry Zayas RN Position: [facility] [place] Nurse Member Role: Primary Care Nurse Care Team Related Persons Name: MERI CARLISLE Address: home [address] [place], [place] Name: KATI PEREZ Address: home [address] [place] [address] Name: DIONICIO ANTONIO Address: [place] [address] Name: LUIGI ANTONIO Address: home [address] [place] [address]
--- OUTSIDE RECORDS SUMMARY | 2023-05-21 22:45 | XMS_ITS | Continuity of Care Document ---
Author Name Unknown Organization [facility] Address [address] [place] [address]- Care Team Providers Care Divine Healer Name Role Phone Renée FERNANDEZ, Elba Ohara Primary Care Physician [phone] Encounter [facility] [place] Date(s): 07/04/22 - 08/03/22 [facility] [address] [place] [address] Allergies, Adverse Reactions, Alerts Substance Reaction Severity [...] 11 Refills, Maintenance, 06/21/22 11:52:00 EST, Solution, [facility] #[id number], Partial fill upon patient request if the prescription is for a schedule II... Start Date: 06/21/22 Stop Date: 06/16/23 Status: Ordered Ambien 10 mg oral tablet See Instructions, 1/2- 1 tablet By Mouth Daily at bedtime, # 30 tablet, 0 Refills, Maintenance, 07/05/22 18:21:00 EST, [facility] #[id number], Partial fill upon patient request if the prescription is for a schedule II opioid drug., 186, cm, 05/30... Start Date: 07/05/22 Status: Ordered apixaban 5 mg oral tablet 2 tablet = 10 mg, By Mouth, 2 times a day, 2 tabs 2 times per day x12 doses, then 1 tab 2 times perday future refills by PCP, Dr. Chinchilla, # 120 tablet, 1 Refills, Maintenance, 07/31/22 9:28:00 EST,Tablet, [facility] #[id number], Partial fill... Start Date: 07/31/22 Status: Ordered LORazepam 1 mg oral tablet [...] Refills, Maintenance, 06/06/22 14:42:00 EST, EC Capsule, [facility] #[id number], Partial fill upon patient request if the prescription is for a sched... Start Date: 06/06/22 Stop Date: 09/04/22 Status: Ordered Spiriva Respimat 10 ACT 2.5 mcg/inh inhalation aerosol 2 puffs, Inhalation, Daily, # 4 Gm, 11 Refills, Maintenance, 07/21/22 16:56:00 EST, [facility] #[id number], Partial fill upon patient request if the prescription is for a schedule II opioid drug., 186, cm, 06/21/22 11:11:00 EST, Height, 85.3, kg,... Start Date: 07/21/22 Stop Date: 07/16/23 Status: Ordered Ventolin HFA 108 mcg/inh inhalation aerosol with adapter 2 puffs, Inhalation, Every 6 hours, PRN Wheezing/Shortness of Breath, # 18 Gm, 11 Refills, Maintenance, 06/21/22 11:57:00 EST, [facility] #[id number], Partial fill upon patient request if the [...] Personnel Name: Renée FERNANDEZ, Elba Ohara Position: [facility] Primary Care Physician Member Role: PCP Address: Address: [address] [place] [address], [address] [place] [address]- Name: Chayito Roy RN Position: [facility] RN Member Role: Primary Care Nurse Name: Jenna Whitmore RN Position: [facility] [employer] Member Role: Primary Care Nurse Name: Marry Zayas RN Position: [facility] [place] Nurse Member Role: Primary Care Nurse Care Team Related Persons Name: MERI CARLISLE Address: [address] [address] Name: KATI PEREZ Address: home [address] [place] [address] Name: DIONICIO ANTONIO Address: [place] [address] Name: LUIGI ANTONIO Address: home [address] [place] [address]
[2023-05-21 23:24] VITALS: PULSE 96
[2023-05-21 23:29] VITALS: BP 115/82; PULSE 100; RESP 18; TEMP 37; O2SAT 96
[2023-05-21 23:31] LABS: Prothrombin Time 12.7 SEC (11.1-13.3)
[2023-05-21 23:34] LABS: Partial Thromboplastin Time 31.5 SEC (26.0-36.4)
[2023-05-22] MEDS: iohexoL 350 MG/ML 100 ML INFUS..BTL 65 ML IV (00:18)
[2023-05-22 00:47] LABS: Troponin-I High Sensitivity < 2.7 ng/L (<3.5-35.0)
[2023-05-22] MEDS: Morphine Sulfate Immed Release 15 MG TABLET PO (01:38)
== END 2023-05-22 01:51 | disposition home or self-care (01) ==
PROVIDERS: Emergency Provider Internal Medicine
DX: R07.9 Chest pain, unspecified (principal); J43.9 Emphysema, unspecified; Z85.118 Personal history of other malignant neoplasm of bronchus and lung; Z86.711 Personal history of pulmonary embolism; Z86.718 Personal history of other venous thrombosis and embolism; Z79.01 Long term (current) use of anticoagulants; Z92.21 Personal history of antineoplastic chemotherapy; Z92.3 Personal history of irradiation; Z90.2 Acquired absence of lung [part of]
CPT/HCPCS: 36415; 71046; 71275; 80053; 84484; 85025; 85610; 85730; 93005; 99285; Q9967

== ENCOUNTER → 2023-05-21 20:01 | Outpatient (BNV) | payer OTHER, SELFPAY | PROVIDERS: Emergency Provider Internal Medicine; Visit Provider Internal Medicine Cardiovascular Disease | DX: I49.9 Cardiac arrhythmia, unspecified (principal) | CPT/HCPCS: 93010 ==

== ENCOUNTER 2023-06-20 12:56 | Outpatient (REF) | payer OTHER, SELFPAY | END 2023-06-20 12:57 | disposition home or self-care (01) | LOC: HO.BBR 12:56 | PROVIDERS: Visit Provider Hospitalist | DX: E83.111 Hemochromatosis due to repeated red blood cell transfusions (principal) | CPT/HCPCS: 85014; 85018; 99195 ==

== ENCOUNTER 2023-07-25 10:03 | Outpatient (REF) | payer OTHER, SELFPAY | END 2023-07-25 10:04 | disposition home or self-care (01) | LOC: HO.BBR 10:03 | PROVIDERS: Visit Provider Hospitalist | DX: E83.111 Hemochromatosis due to repeated red blood cell transfusions (principal) | CPT/HCPCS: 85018; 99195 ==

== ENCOUNTER 2023-08-22 08:52 | Outpatient (REF) | payer OTHER, SELFPAY | END 2023-08-22 08:53 | disposition home or self-care (01) | LOC: HO.BBR 08:52 | PROVIDERS: Visit Provider Hospitalist | DX: E83.19 Other disorders of iron metabolism (principal) | CPT/HCPCS: 85018; 99195 ==

== ENCOUNTER 2023-09-25 11:50 | Outpatient (REF) | payer OTHER, SELFPAY | END 2023-09-25 11:51 | disposition home or self-care (01) | LOC: HO.BBR 11:50 | PROVIDERS: Visit Provider Hospitalist | DX: E83.111 Hemochromatosis due to repeated red blood cell transfusions (principal) | CPT/HCPCS: 85018; 99195 ==

== ENCOUNTER 2023-11-03 10:03 | Outpatient (REF) | payer OTHER, SELFPAY | END 2023-11-03 10:04 | disposition home or self-care (01) | LOC: HO.BBR 10:03 | PROVIDERS: Visit Provider Hospitalist | DX: E83.10 Disorder of iron metabolism, unspecified (principal) | CPT/HCPCS: 85018; 99195 ==